=== PATIENT | female | born 1935 | race Caucasian/White ===

== ENCOUNTER 2017-05-24 12:47 | Outpatient (CLI) | payer MEDICARE, OTHER ==
--- OUTSIDE RECORDS SUMMARY | 2017-05-24 12:52 | XMS | Clinical Summary ---
:1935 Author Organization [facility] Address [address] [place] [address] Phone Care Team Providers Name Role Phone , Primary Care Provider Unavailable Allergies Not on File Current Medications Not on file Active Problems Not on file Social History Tobacco Use Types Packs/Day Years Used Date Never Assessed Sex Assigned at Date Recorded Not on file Last Filed Vital Signs Not on file Plan of Treatment Not on file Results Not on filefrom Last 3 Months
--- NOTE | 2017-05-24 15:39 | RAD ---
CHEST 2 VIEWS: HISTORY: Dyspnea. COMPARISON: 10/13/16. FINDINGS: The cardiac silhouette remains partially obscured by an elevated right hemidiaphragm. Pulmonary vas culature is upper limits of normal. Mediastinum is midline with aortic calcification. There is no confluent airspace consolidation, pneumothorax, or pleural fluid evident. IMPRESSION: Chronic-type findings are stable. POS: [facility]
== END 2017-05-24 12:48 | disposition home or self-care (01) ==
LOC: RAD 12:47
PROVIDERS: ATTEND Internal Medicine Pulmonary Disease
DX: R06.00 Dyspnea, unspecified (principal)
CPT/HCPCS: 71020

== ENCOUNTER 2017-12-29 23:13 | Inpatient (IN) | payer MEDICARE, OTHER ==
[2017-12-29] MEDS ORDERED: diphenhydrAMINE 50 MG/ML VIAL ONE (23:41)
[2017-12-29] MEDS ORDERED: methylPREDNISolone Sod Succ/PF 125 MG/2 ML VIAL ONE ×2 (23:41→23:52)
[2017-12-29 23:53] LABS: #Eosinphils 0.2 thou/uL (0.0-0.7); #Lymphocytes 2.3 thou/uL (1.20-3.40); #Monocytes 0.6 thou/uL (0.11-0.59); #Neutrophils 3.4 thou/uL (1.40-6.50); %Basophils 0.2 % (0.0-1.0); %Eosinophils 2.9 % (0.0-10.0); %Lymphocytes 35.3 % (21.0-51.0); %Neutrophils 52.7 % (42.0-75.0); Hemoglobin 12.7 g/dL (12.0-16.0); Mean Corpuscular HGB CONC 34.2 g/dL (32.0-36.0); Mean Corpuscular Volume 93.8 fl (81.0-99.0); Platelet Count 193 thou/uL (130-400); RBC Distribution Width 14.4 % (11.5-14.5); Red Blood Cell (RBC) Count 3.96 mill/uL (4.20-5.40); White Blood Cell (WBC) Count 6.5 thou/uL (4.8-10.8)
--- NOTE | 2017-12-30 00:03 | RAD ---
SINGLE VIEW OF THE CHEST: 12/29/17 INDICATION: Shortness of breath. COMPARISON: Prior exam dated 05/24/17. FINDINGS: Again seen is prominent elevation of the right hemidiaphragm. There is gas density seen underlying th e right hemidiaphragm which may reflect gas filled colon. There was some gas filled colon underlying the right hemidiaphragm on the comparison examination in 2017 but not to the extent seen today. Heart size appears within normal limits. No definite consolidation or pleural effusion is noted. Osseous s tructures are similar appearing. IMPRESSION: 1. Likely stable examination of the chest when compared to prior dated 05/24/17. 2. Stable elevation of the right hemidiaphragm. 3. Gas filled loop of colon suspected along the right hemidiaphragm appears slightly more promin ent than on the comparison study. 4. No focal consolidation is grossly evident. 5. Other chronic findings stable. POS: [facility]
[2017-12-30 00:14] LABS: ALT (SGPT) 23 U/L (8-55); AST (SGOT) 36 U/L (5-34); Albumin 3.8 g/dL (3.4-4.8); Alkaline Phosphatase 93 U/L (40-150); Anion Gap 15 mmol/L (10-20); BUN (Urea Nitrogen) 40 mg/dL (9.8-20.1); Bilirubin, Total 0.3 mg/dL (0.2-1.2); CK (CPK) 222 U/L (29-168); Calc. Creatinine Clearance 0 mL/min (70-130); Calcium 9.2 mg/dL (7.8-10.44); Carbon Dioxide 23 mmol/L (23-31); Chloride 98 mmol/L (98-107); Estimated GFR-MDRD 23; Globulin 3.5 g/dL (2.4-3.5); Glucose 103 mg/dL (83-110); Magnesium 2.3 mg/dL (1.6-2.6); Potassium 4.9 mmol/L (3.5-5.1); Protein, Total 7.3 g/dL (6.0-8.3); Sodium 131 mmol/L (136-145)
[2017-12-30 00:17] LABS: Troponin I 0.018 ng/mL (< 0.028)
[2017-12-30] MEDS ORDERED: Acetaminophen 500 MG TAB ONE (00:21)
[2017-12-30 00:27] LABS: Bilirubin Negative (Negative); Blood, Urine Large (Negative); Clarity CLEAR (Clear); Glucose, Urine (Dipstick) Negative (Negative); Leukocyte Negative (Negative); Nitrite Negative (Negative); Protein, Urine (Dipstick) Trace mg/dL (Neg-Trace); Specific Gravity, Urine 1.018 (1.002-1.036); Urobilinogen 0.2 mg/dL (0.2-1.0)
[2017-12-30] MEDS ORDERED: Lorazepam 2 MG/ML VIAL ONE (00:28)
[2017-12-30 00:29] LABS: Bacteria/HPF None Seen HPF (None Seen); Hyaline Casts/LPF 4-6 HYALINE CAST LPF (0-3 Hyaline); Pathc Cast-AUWi Flag 0.58 (0-2.49); RBC/HPF GREATER THAN 50-TNTC HPF (0-3); Squamous Epithelial 0-3 HPF (0-3); WBC/HPF 0-3 HPF (0-3)
[2017-12-30] MEDS ORDERED: Acetaminophen 325 MG Suppository ONE (00:34)
[2017-12-30 00:35] LABS: CKMB 10.9 ng/mL (0-6.6)
[2017-12-30 00:47] LABS: CO2 Tension 53.8 mmHg (35.0-45.0); pH, Arterial 7.21 (7.35-7.45)
[2017-12-30 00:48] LABS: Actual Bicarbonate (HCO3a) 21.1 mEq/L (22-26); Base Excess (BEa) -6.9 mEq/L (0 (+/-) 2.5); Calcium, Ionized 1.2 mmol/L (1.12-1.30); Hematocrit-ABG 39.3 % (36.0-47.0); Hemoglobin (Hb) 11.6 g/dL (12.0-16.0)
[2017-12-30 00:49] LABS: Analyzer IN Cardio ER; Puncture Site RRA
[2017-12-30] MEDS ORDERED: Succinylcholine Chloride 20 MG/ML 10 ml SYRINGE FS ONE (02:17)
[2017-12-30] MEDS ORDERED: fentaNYL Citrate/PF 2,000 MCG in Sodium Chloride 0.9% 60 ML IV SCH ×2 (02:30→04:02)
[2017-12-30 02:47] LABS: Actual Bicarbonate (HCO3a) 19.1 mEq/L (22-26); Base Excess (BEa) -8.3 mEq/L (0 (+/-) 2.5); CO2 Tension 47.3 mmHg (35.0-45.0); Calcium, Ionized 1.1 mmol/L (1.12-1.30); O2 Tension (PaO2) 109.8 mmHg (80.0-100.0); pH, Arterial 7.22 (7.35-7.45)
[2017-12-30 02:48] LABS: Analyzer IN Cardio ER; Hematocrit-ABG 39.9 % (36.0-47.0); Hemoglobin (Hb) 11.3 g/dL (12.0-16.0); Puncture Site LBA
[2017-12-30 02:52] LABS: ALV-art Gradient 539.075 (0-20)
[2017-12-30] MEDS ORDERED: Norepinephrine 8 MG in Sodium Chloride 0.9% 250 ML 250 ML IVPB SCH (03:15)
[2017-12-30] MEDS ORDERED: EPINEPHrine 1 MG/ML AMP ONE (03:25)
[2017-12-30] MEDS ORDERED: EPINEPHrine 1 MG/10 ML Abboject SYRINGE ONE (03:26)
[2017-12-30] MEDS ORDERED: Milk Of Magnesia 30 ML UDCUP PER TUBE PRN (03:47)
[2017-12-30] MEDS ORDERED: Ventilator Sedation Protocol 1 EACH FS SCH (03:47)
[2017-12-30] MEDS ORDERED: Acetaminophen 650 MG Suppository PR PRN (03:47)
[2017-12-30] MEDS ORDERED: Bisacodyl 10 MG SUPP PR PRN (03:47)
[2017-12-30] MEDS ORDERED: Acetaminophen 325 MG TAB PER TUBE PRN (03:47)
[2017-12-30] MEDS ORDERED: Mag-Al 1200 mg/1200 mg/30 ML UDCUP PER TUBE PRN (03:47)
[2017-12-30] MEDS ORDERED: Loperamide HCl 2 MG CAP PER TUBE PRN (03:47)
[2017-12-30] MEDS ORDERED: Ondansetron HCl/PF 4 MG/2 ML Vial IVP PRN (03:47)
[2017-12-30 03:51] LABS: Troponin I Less than 0.010 ng/mL (< 0.028)
[2017-12-30] MEDS ORDERED: Norepinephrine 8 MG/0.9% NS 250 ML IVPB SCH (04:00)
[2017-12-30] MEDS ORDERED: DISCONTINUE PREVIOUS NARCOTIC PAIN MEDICATIONS AND BENZODIAZEPINES FS SCH (04:02)
[2017-12-30] MEDS ORDERED: Fentanyl BOLUS 250 ML IVPB PRN (04:02)
[2017-12-30] MEDS ORDERED: Propofol BOLUS 1,000 MG/100 ML VIAL IV PRN (04:02)
[2017-12-30] MEDS ORDERED: Morphine 4 MG/ML VIAL SLOW IVP PRN (04:02)
--- NOTE | 2017-12-30 04:29 | HP ---
PRIMARY CARE PHYSICIAN: Dr. Sebastien Quinonez. REASON FOR ADMISSION: Acute respiratory failure. HISTORY OF PRESENT ILLNESS: This is an 82-year-old female who lives at home. She has 24-hour caregiver. Patient was having cough and altered mental status. Patient was incoherent at home. Normally, she gets around with a walker or cane. Per family member, patient was altered significantly today and that is why they brought her to emergency room. Patient has underlying psychiatric problem, but she is able to function by herself. She was having cough with scant amount of sputum and she appeared short of breath. In emergency room, patient was not able to provide any history, though she was able to answer some simple questions, but she was not in position to provide detailed history. She was appeared in respiratory distress. Her chest x-ray was unchanged from previous. Patient was not able to maintain her airway and that is why ER physician decided to intubate her. In emergency room, patient was febrile with temperature 100.2. Her blood pressure was dropping in emergency room and patient was also encephalopathic. She was initially saturating 88% on room air , but with face mask, she was saturating 99%. Family member present at bedside who reported that she was given antibiotic therapy for urinary tract infection on last Sunday, which she finished antibiotic therapy today. Patient is taking trihexyphenidyl medication for several years for underlying psychiatric problem. Patient does not have any UTI symptoms. She does not have any constipation, diarrhea, melena, hematochezia. REVIEW OF SYSTEMS: The following complete review of systems was negative, unless otherwise mentioned in the HPI or below: Constitutional: Weight loss or gain, ability to conduct usual activities. Skin: Rash, itching. Eyes: Double vision, pain. ENT/Mouth: Nose bleeding, neck stiffness, pain, tenderness. Cardiovascular: Palpitations, dyspnea on exertion, orthopnea. Respiratory: Shortness of breath, wheezing, cough, hemoptysis, fever, or night sweats. Gastrointestinal: Poor appetite, abdominal pain, heartburn, nausea, vomiting, constipation, or diarrhea. Genitourinary: Urgency, frequency, dysuria, nocturia. Musculoskeletal: Pain, swelling. Neurologic/Psychiatric: Anxiety, depression. Allergy/Immunologic: Skin rash, bleeding tendency. Though review of system are reviewed with the patient, but not reliable because of her level of cognitive status. PAST MEDICAL HISTORY: COPD/pulmonary fibrosis, dyslipidemia, hypertension. PAST SURGICAL HISTORY: Bilateral hip replacement, right ankle fracture required surgery. PAST PSYCHIATRIC HISTORY: Anxiety, depression. FAMILY HISTORY: As per patient's family member, no strong family history of premature coronary artery disease, stroke, or cancer. ALLERGIES: PENICILLIN. CURRENT HOME MEDICATIONS: Valsartan with hydrochlorothiazide 320/25 one tablet p.o. daily, Zocor 40 mg p.o. at bedtime, Remeron 15 mg p.o. at bedtime, trihexyphenidyl 2 mg p.o. twice daily, gabapentin 600 mg p.o. at bedtime, lamotrigine 150 mg p.o. daily, desvenlafaxine 100 mg p.o. daily. SOCIAL HISTORY: Patient lives at home. She has 24-hour caregiver. No history of tobacco, alcohol, or illicit drug abuse. EMERGENCY ROOM COURSE: Patient is given Solu-Medrol, Benadryl, IV fluid, Levaquin, vancomycin, and DuoNeb therapy. PHYSICAL EXAMINATION: VITAL SIGNS: On arrival blood pressure 129/93, pulse 86, respiratory rate 40, temperature 100.5, saturation 98% on room air, weight 68 kilograms. GENERAL: Patient is currently in respiratory distress. She has tardive dyskinesia. Patient had difficulty handling oral secretions. HEAD: Normocephalic, atraumatic. EYES: Pupils round, reactive to light. Extraocular muscle intact. ENT: Tardive dyskinesia movement of tongue noted. Oropharynx within normal limits. Moist mucous membranes. No pharyngeal erythema, no exudate. NECK: Supple, no JVD, no thyromegaly, no carotid bruit, no meningeal signs of irritation. LUNGS: Diffuse bilateral and expiratory wheezing heard. Air entry reduced at base. CARDIAC: S1, S2 regular, tachycardia noted. No gallop, no rub. ABDOMEN: Soft, bowel sounds present, nontender, nondistended. No organomegaly , no mass, no suprapubic tenderness. BACK: Unremarkable, no CVA tenderness. EXTREMITIES: Upper extremity, passive movement of all joints are normal. Lower extremity: Patient does have right hip bruising, no edema. Good distal pulsation. SKIN: Right hip bruising noted, otherwise no rash. HEMATOLOGICAL: No lymphadenopathy. PSYCHIATRIC: Flat affect. NEUROLOGIC: She is moving all 4 limbs. Grossly looking nonfocal neurological examination. Detailed neurological examination is not possible because of patient's level of cognitive status. SIGNIFICANT LABORATORY DATA: EKG showing normal sinus rhythm. CT brain based on my review, no acute intracranial process. Hip x-ray showing old fracture noted. CBC: WBC of 6.5, hemoglobin 12.7, platelet 193. ABG: pH 7.21, pCO2 of 53.8, bicarbonate 21.1, saturation 96%. BMP: Sodium 131, potassium 4.9, chloride 98, carbon dioxide 23, BUN 40, creatinine 2.07, glucose 103, calcium 9.2, lactic acid 1.6. LFT: Total bilirubin 0.3, AST 36, ALT 23, alkaline phosphatase 93, albumin 3.8, CK of 222, CK-MB 10.9, troponin I 0.018. BNP 201.7. Urinalysis microscopic hematuria. ASSESSMENT AND PLAN: 1. Acute respiratory failure with hypoxia. Patient has required intubation. Patient was tried with nonrebreather, but she was not able to maintain her oral secretions and she was not maintaining her airways and that is why patient required intubation. Pulmonary group will be consulted for vent management. 2. Acute encephalopathy. Patient is altered from her baseline status likely due to metabolic parameters. 3. Acute respiratory acidosis required intubation, we will monitor ABG. 4. Acute kidney failure. Patient's last creatinine in 2013 was 1.51. I am suspecting patient has baseline chronic kidney disease, stage 3 and has gotten worse. We will give her gentle IV fluid and we will repeat kidney function tomorrow. 5. Mild hyponatremia. Patient is getting gentle IV fluid and will repeat BMP tomorrow. 6. Mild rhabdomyolysis and that is why patient has elevated total CK. We will give her gentle IV fluid and will repeat CK tomorrow as well as we will do serial cardiac enzymes to rule out acute coronary syndrome. 7. Elevated BNP. We will do echocardiography to assess ejection fraction and other structural abnormality. 8. Microscopic hematuria. Genital examination done by ER physician and patient was found with periurethral irritation from Suarez catheterization. We will send urine culture and rule out urinary tract infection, though patient was recently treated for urinary tract infection by primary care physician. 9. Hypertension. If blood pressure permits, then we will resume patient's home medication or blood pressure currently blood pressure runs low and that is why we will hold on antihypertensive medication. 10. Dyslipidemia. We will resume Zocor 40 mg p.o. at bedtime. 11. Chronic obstructive pulmonary disease. We will continue DuoNeb therapy q.6 hourly and Pulmicort nebulization twice daily. 12. Anxiety and depression. We will continue patient's gabapentin, lamotrigine , Remeron and , trihexyphenidyl medication as per home dosage after verification of dose. 13. Deep venous thrombosis prophylaxis, heparin 5000 units subcutaneous twice daily. 14. Gastrointestinal prophylaxis, Protonix 40 mg IV daily. 15. Code status: Patient is FULL CODE. Patient's son is surrogate decision maker. Disposition plan based on clinical course. We are expecting patient's stay in hospital more than 2 midnights. Plan of care discussed with the patient in detail. MTDD
[2017-12-30] MEDS: Sodium Chloride 0.9% 1,000 ML IV SCH ×2 (06:58→16:23)
[2017-12-30] MEDS: Budesonide 0.5 MG/2 ML NEB INH SCH ×2 (07:05→19:42)
[2017-12-30] MEDS: Pantoprazole 40 MG VIAL IVP SCH (09:06)
[2017-12-30] MEDS: Heparin 5,000 UNITS/ML VIAL SC SCH ×2 (09:06→21:19)
--- NOTE | 2017-12-30 11:04 | RAD ---
TWO VIEWS RIGHT HIP: HISTORY: Contusion and fall. FINDINGS: Uncomplicated right hip arthroplasty is noted. Extensive heterotopic bone formation and vascular ty cifications are identified. An acute fracture is not appreciated. No perihardware lucency. IMPRESSION: No posttraumatic change. POS: [facility]
--- NOTE | 2017-12-30 11:37 | RAD ---
PORTABLE AP CHEST XRAY: DATE: 12/30/17. HISTORY: Post intubation. COMPARISON: 12/29/17. FINDINGS: Endotracheal tube is now noted in place with the tip overlying the T4-5 level and just above the leve l of the kendall. Nasogastric tube is noted in place with tip overlying the proximal body of the stom ach. The most proximal side hole of the nasogastric tube probably overlies the GE junction. Again n oted is elevation of the right hemidiaphragm. There is volume loss at the right lung base. There ar e increased interstitial and patchy parenchymal opacities seen within the left lung greatest in the l eft mid lung zone and at the medial left lung base which may be related to developing pneumonia and/o r aspiration pneumonitis. Continued followup is recommended. Vascular calcification in the thoracic aorta. Cardiac silhouette is within normal limits. No other interval change. IMPRESSION: 1. Interval placement of endotracheal tube and nasogastric tube. The most proximal sidehole of the nasogastric tube probably overlies the GE junction. Nasogastric tube should be mildly advanced. 2. Persistent elevation of the right hemidiaphragm with atelectasis right lung base. 3. Interstitial and a few scattered patchy parenchymal changes within the left lung which could be r elated to developing infectious process and less likely asymmetric pulmonary edema. Associated aspir ation pneumonitis on the left could not be excluded. Continued followup is recommended. POS: [facility]
--- NOTE | 2017-12-30 11:40 | RAD ---
PORTABLE AP CHEST XRAY: DATE: 12/30/17. HISTORY: Central line placement. COMPARISON: 12/30/17 at 0233 hours. FINDINGS: Endotracheal tube and nasogastric tubes remain in place and unchanged in position. There has been in terval placement of a right internal jugular vein central venous catheter with tip overlying the expe cted location of the right atrium. There is persistent elevation of the right hemidiaphragm with ate lectasis at the right lung base. Interstitial and patchy parenchymal changes are again seen in the l eft mid lung zone and at the lung base which, again, may be related to infectious process/pneumonia. No other interval change. IMPRESSION: 1. Patchy parenchymal changes and interstitial densities in the left mid lung zone and left lung bas e which may be related to pneumonia/infectious process. Followup to resolution is recommended. 2. Elevation of the right hemidiaphragm. 3. Lines and tubes stable in position. No pneumothorax is present. POS: [facility]
[2017-12-30 12:20] LABS: CKMB 8.8 ng/mL (0-6.6); Critical Call CKMBM RESULT DECREASING
[2017-12-30 12:40] LABS: Troponin I 0.168 ng/mL (< 0.028)
--- NOTE | 2017-12-30 13:13 | CT ---
PRELIMINARY REPORT/[facility]/EMERGENTY AFTER-HOURS PROCEDURE CT Head Without Intravenous Contrast EXAM DATE/TIME: Exam ordered 12/30/2017 12:56 AM CLINICAL HISTORY: 82 years old, female; Signs and symptoms; Altered mental status/memory loss; Patient HX: [id number] pres ents to ed C/O difficulty breathing, came in on room air at 88%. Pt has HX of pulmonary fibrosis. Pt does not rely on o2 at home. Lip-smacking is normal. Pt has a uti and has been taking an antibiotic since sunday, last dose was tonight. Pt is febrile at 101. Daughter states that the excessive blinkin g, AMS, and difficulty holding glasses began today. Drug allergy to penicillin. No HX of stroke, or h eart stents. Tempering Kiln Tender denies any diarrhea. TECHNIQUE: Axial computed tomography images of the head/brain without intravenous contrast. COMPARISON: No relevant prior studies available. FINDINGS: Brain: Volume loss and chronic small vessel ischemic change. No hemorrhage. Ventricles: Unremarkable. No ventriculomegaly. Bones/joints: Unremarkable. No acute fracture. Soft tissues: Unremarkable. Sinuses: Unremarkable as visualized. No acute sinusitis. Mastoid air cells: Unremarkable as visualized. No mastoid effusion. IMPRESSION: No acute brain findings. Thank you for allowing us to participate in the care of your patient. Dictated and Authenticated by: Tristen Kaur MD 12/30/2017 1:24 AM Central Time ([place] & [place]) FINAL REPORT EMERGENT AFTER HOURS CT HEAD: DATE: 12/30/17. HISTORY: Altered mental status, memory loss. The patient complains of difficulty breathing. History of pulmo nary fibrosis. IMPRESSION: 1. Lacunar infarction right thalamus of which the exact age is indeterminate. 2. Chronic small-vessel ischemic changes and cerebral volume loss. 3. No acute cortical infarction or hemorrhage is visualized. 4. Findings are in agreement with the preliminary report by [facility]. POS: [facility]
--- NOTE | 2017-12-30 17:28 | CON ---
DATE OF CONSULTATION: 12/30/2017 HISTORY OF PRESENT ILLNESS: Ms. Aleman is an 82-year-old female, who lives at home with 24-hour [facility]. The patient is currently intubated and history is obtained from family members. She normally w alks with a walker. The patient fell yesterday, but has had fairly frequent falls onto her hips. Rosa Elena quinteros has had total hip replacements in the past. She has had bruising in the lateral aspect of the righ t hip for a few days. She had a minor fall yesterday, was brought in because of fever. While she carter s been in the hospital, it has gone up to 104 and reportedly she has a UTI. She had x-rays obtained of the right hip shows a right total hip replacement and I was consulted for the bruising on the late ral aspect of the right hip. PHYSICAL EXAMINATION: The patient has older bruising on the lateral aspect of the right hip and appe ars to be a few days old. There are no skin tears. Skin is in good condition. I am able to move he r right hip without any apparent discomfort, but this is difficult to ascertain since the patient is intubated. There is no crepitance or popping. Her range of motion is smooth. IMAGING: I reviewed the x-rays. The patient has a right total hip replacement in good position and good alignment. There are no acute fractures around the pelvis or proximal femur. Extra bone format ion lateral to the greater trochanter, but there are no acute fractures. The femoral artery was easi ly seen from calcification. IMPRESSION: Contusion of the right hip. PLAN: No specific treatment is needed. The patient may increase her activity with her right hip as medically tolerated by her other condition.
[2017-12-30 18:50] LABS: Troponin I 0.142 ng/mL (< 0.028)
[2017-12-30 18:55] LABS: CKMB 8.4 ng/mL (0-6.6); Critical Call CKMBM RESULT DECREASING
--- NOTE | 2017-12-30 22:18 | CON ---
DATE OF CONSULTATION: 12/30/2017 Ms. Aleman is an 82-year-old female. I met with her son and daughter. They both feel strongly that pernell quinteros likely has dementia. She has been having increasing confusion this week, was worked up for UTI earlier in the week. They tell me that the cultures were negative. There is nothing in the [facility]. She has been followed by Dr. Grover for many years, according to the family, that is for a chronically abnormal chest radiograph. She has not had a history of progressive lung disease. She is also followed by Dr. Quinonez. She did have pulmonary function tests back in 2015, which showed evidence of restriction with low tot al lung capacity and reduced diffusion. She also had a chest CT done in 2014, was ordered by Dr. Grover that showed linear changes in left uppe r lobe and some atelectasis changes in the middle lobe on the right. Her pulmonary function tests going back to at least 2013. She apparently started having trouble handling her secretions and so she was subsequently intubated. I was consulted by the nurses because of her presence to Critical Care Unit this morning. PAST MEDICAL HISTORY: Remarkable for, 1. Lipid disorder. 2. History of hypertension. 3. History of depression. 4. History of surgery for a displaced ankle fracture by Dr. Stephen in 2006. 5. History of left hip arthroplasty. 6. History of restless legs. 7. History of fibromyalgia. 8. History of urinary frequency. 9. History of chronic back pain. 10. History of dysphagia in the past. 11. History of degenerative arthritis. 12. 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 13. History of unilateral oophorectomy. 14. History of PENICILLIN allergy. SOCIAL HISTORY: She has never been a smoker, drinker or drug user. I believe, she is a . FAMILY HISTORY: Negative for lung disease in early age. REVIEW OF SYSTEMS: Not obtainable. PHYSICAL EXAMINATION: GENERAL: She is intubated. She appears reasonably comfortable. Heart rates in the 50s, respiratory rates in the teens, oximetry is 93%, blood pressure 132/66. HEENT: Pupils react. Sclerae are anicteric. Extraocular movements appear full. NECK: Without lymphadenopathy. LUNGS: Remarkable for equal breath sounds. HEART: Regular rhythm. S1 and S2 are normal. ABDOMEN: Soft and nontender. EXTREMITIES: Without clubbing, cyanosis, or edema. LABORATORY DATA: White count yesterday at 6.5, hemoglobin 12.7, platelets 193. Sodium 131, potassiu m 4.9, chloride 98, bicarbonate 23, BUN 40, creatinine 2.07, AST 36, ALT is 23. Troponin was negativ e. BNP 201. Cortisol 17. Her chest radiograph shows an alveolar infiltrate at the left base is patchy. IMPRESSION: 1. Pneumonia with respiratory failure. 2. Extreme deconditioning. 3. Dementia that is clinically by the history of both children has been progressive lately. PLAN: Mechanical ventilation, empiric antimicrobial therapy, serial exams, sedation. I discussed en d-of-life issues and DO NOT RESUSCITATE status. Family wants to talk about this and they seem open t o the idea of at least a DNR, but continue with aggressive care. Dr. Grover will see her in followup i n the morning since he is very familiar with her. Critical care time 30 minutes.
[2017-12-31] MEDS: Sodium Chloride 0.9% 1,000 ML IV SCH ×3 (01:00→23:40)
[2017-12-31 01:53] LABS: Band 17 % (5-11); Hemoglobin 10.8 g/dL (12.0-16.0); Lymphocytes 5 % (21-51); MDiff Complete? YES; Mean Corpuscular HGB CONC 32.9 g/dL (32.0-36.0); Mean Corpuscular Hemoglobin 31.1 pg (27.0-31.0); Mean Corpuscular Volume 94.4 fl (81.0-99.0); Mean Platelet Volume 6.8 fL (7.4-10.4); Monocytes 1 % (0-10); Neutrophil 77 % (42-75); Platelet Count 160 thou/uL (130-400); RBC Distribution Width 14.4 % (11.5-14.5); Red Blood Cell (RBC) Count 3.48 mill/uL (4.20-5.40); White Blood Cell (WBC) Count 5.9 thou/uL (4.8-10.8)
[2017-12-31 01:55] LABS: Troponin I 0.109 ng/mL (< 0.028)
[2017-12-31 01:56] LABS: CKMB 8.3 ng/mL (0-6.6); Critical Call CKMBM RESULT DECREASING
[2017-12-31 01:58] LABS: Anion Gap 13 mmol/L (10-20); BUN (Urea Nitrogen) 25 mg/dL (9.8-20.1); Calc. Creatinine Clearance 43 mL/min (70-130); Calcium 7.6 mg/dL (7.8-10.44); Carbon Dioxide 16 mmol/L (23-31); Chloride 108 mmol/L (98-107); Estimated GFR-MDRD 43; Glucose 142 mg/dL (83-110); Potassium 4.3 mmol/L (3.5-5.1); Sodium 133 mmol/L (136-145)
[2017-12-31] MEDS: Budesonide 0.5 MG/2 ML NEB INH SCH (06:34)
[2017-12-31 07:05] LABS: Actual Bicarbonate (HCO3a) 17.5 mEq/L (22-26); Base Excess (BEa) -7.4 mEq/L (0 (+/-) 2.5); CO2 Tension 33.2 mmHg (35.0-45.0); Hematocrit-ABG 33.1 % (36.0-47.0); Hemoglobin (Hb) 10.2 g/dL (12.0-16.0); O2 Tension (PaO2) 58.1 mmHg (80.0-100.0); pH, Arterial 7.34 (7.35-7.45)
[2017-12-31 07:07] LABS: Calcium, Ionized 1.1 mmol/L (1.12-1.30); Puncture Site RR
--- NOTE | 2017-12-31 08:46 | PRG ---
DATE OF SERVICE: 12/31/2017 This is an 82-year-old female well known to me, who was intubated with respiratory failure. X-ray sh ows now a right-sided pneumonia. Apparently she was seen in Dr. Quinonez's office with a diagnosis of U TI and received what appears to be a week course of Bactrim-DS. She became more confused and agitated with retained secretions over the last 24 hours. In the ER, she had a large volume of secretions, unable to handle, she was intubated. X-ray shows no w a left-sided pneumonia. The patient had a gradual decline in her health. I have been seeing her in the office for an extende d period of time with bilateral elevated diaphragm with severe restrictive pulmonary impairment. It was not pulmonary fibrosis, though she clearly had rather impressive crackles in both lungs. Her previous pulmonary function test in the past 2 years showed there was severe reduction in vital c apacity. She is presently intubated on the vent. PHYSICAL EXAMINATION: VITAL SIGNS: Pulse 93, blood pressure 105/66, sats are 90%, respiration 19. I's & O's have been 233 8 in, 1715 out. CHEST: Chest revealed bilateral rhonchi and crackles. CARDIAC: Sinus tachycardia. ABDOMEN: Soft, without any masses. LABORATORY: White count 5.9, H&H 10 and 32, platelet count 160, pO2 58, pCO2 of 33, pH 7.34, rate o f 16, 40%. Calcium is 1.1, BUN and creatinine are 25 and 1.19. CK-MB is 8.3. Troponin was elevated. Thyroid f unction normal. Sodium 133. IMPRESSION: 1. Left-sided pneumonia. 2. Recent urinary tract infection. 3. Dementia. 4. Respiratory failure, chronic. 5. Advanced age. PLAN: The patient wants to be a DNR. As per the family's wishes I am going to add Maxipime to her a ntibiotics. Continue resuscitative measures. Hopefully, we can try and extubate her in the next 24- 48 hours. Clearly she does not want to be left intubated. This is a one-half hour critical care time. I will follow.
[2017-12-31] MEDS: Pantoprazole 40 MG VIAL IVP SCH (09:20)
[2017-12-31] MEDS: Heparin 5,000 UNITS/ML VIAL SC SCH ×2 (09:20→20:24)
--- NOTE | 2017-12-31 09:50 | RAD ---
PORTABLE AP CHEST: Date: 12/31/17 HISTORY: Daily follow-up evaluation. Patient on ventilator. COMPARISON: 12/30/17. FINDINGS: Endotracheal tube, nasogastric tube, and right internal jugular vein central venous catheters remain in place and unchanged in position. The air space opacities within the left mid lung zone are again s een, and findings again may be related to infectious process/pneumonia. Continued follow-up to resolu tion is recommended. Atelectasis is present at each lung base. There is elevation of the right hemidi aphragm. Cardiac silhouette is within normal limits. There has been no significant interval change fr om prior exam. IMPRESSION: Stable chest. POS: [facility]
[2017-12-31] MEDS: lamoTRIgine 100 MG TAB PO SCH (09:52)
[2017-12-31] MEDS: Venlafaxine HCl XR 150 MG CAP PO SCH (09:57)
[2017-12-31] MEDS: Cefepime 1 GM in Sodium Chloride 0.9% 100 ML IVPB SCH ×2 (09:57→20:24)
[2017-12-31] MEDS: Propofol 1,000 MG/100 ML VIAL IV PRN (10:27)
[2017-12-31] MEDS: Lorazepam 2 MG/ML VIAL SLOW IVP PRN ×2 (11:54→20:11)
--- NOTE | 2017-12-31 13:28 | PDOC.PN ---
- Subjective Encounter Start Date: 12/31/17 Encounter Start Time: 09:20 -: old records requested/rev Patient seen and examined for pneumonia. No overnight events - Objective Resuscitation Status: Resuscitation Status DNR:Do Not Resuscitate MAR Reviewed: Yes Vital Signs & Weight: Vital Signs (12 hours) Temp Pulse Resp BP Pulse Ox 12/31/17 13:10 56 L 114/55 L 12/31/17 12:02 10 L 12/31/17 12:00 98.9 F 12/31/17 10:44 93 132/59 L 12/31/17 10:00 18 12/31/17 08:00 23 H 12/31/17 07:40 99.1 F 89 18 97 12/31/17 06:35 65 87/47 L 12/31/17 05:59 16 12/31/17 04:00 19 12/31/17 03:58 74 12/31/17 02:00 18 Weight Weight 168 lb 6.931 oz Most Recent Monitor Data Heart Rate from ECG 58 NIBP 114/55 NIBP BP-Mean 70 Respiration from ECG 20 SpO2 100 I&O: 12/30/17 12/31/17 01/01/18 06:59 06:59 06:59 Intake Total 2338 500 Output Total 1715 380 Balance 623 120 Result Diagrams: 12/31/17 01:15 12/31/17 01:15 Radiology Reviewed by me: Yes (chest xray, echo) EKG Reviewed by me: Yes (nsr) Phys Exam - Physical Examination Constitutional: NAD intubated HEENT: PERRLA Neck: no JVD, supple Respiratory: no wheezing, no rales, no rhonchi Cardiovascular: RRR, no significant murmur, no rub Gastrointestinal: soft, no distention, positive bowel sounds Musculoskeletal: no edema, pulses present scd+ Lymphatic: no nodes Skin: no rash, normal turgor Dx/Plan (1) Acute kidney failure Status: Acute (2) Acute respiratory acidosis Code(s): E87.2 - ACIDOSIS Status: Acute (3) Acute respiratory failure with hypoxia Code(s): J96.01 - ACUTE RESPIRATORY FAILURE WITH HYPOXIA Status: Acute (4) Demand ischemia Code(s): I24.8 - OTHER FORMS OF ACUTE ISCHEMIC HEART DISEASE Status: Acute (5) Elevated CK Status: Acute (6) Elevated brain natriuretic peptide (BNP) level Code(s): R79.89 - OTHER SPECIFIED ABNORMAL FINDINGS OF BLOOD CHEMISTRY Status : Acute (7) Encephalopathy acute Code(s): G93.40 - ENCEPHALOPATHY, UNSPECIFIED Status: Acute (8) Hyponatremia Code(s): E87.1 - HYPO-OSMOLALITY AND HYPONATREMIA Status: Acute (9) Microscopic hematuria Code(s): R31.29 - OTHER MICROSCOPIC HEMATURIA Status: Acute (10) Pneumonia Code(s): J18.9 - PNEUMONIA, UNSPECIFIED ORGANISM Status: Acute (11) Anxiety and depression Code(s): F41.9 - ANXIETY DISORDER, UNSPECIFIED; F32.9 - MAJOR DEPRESSIVE DISORDER, SINGLE EPISODE, UNSPECIFIED Status: Chronic (12) COPD (chronic obstructive pulmonary disease) Status: Chronic (13) Dyslipidemia Code(s): E78.5 - HYPERLIPIDEMIA, UNSPECIFIED Status: Chronic (14) Elevated diaphragm Code(s): J98.6 - DISORDERS OF DIAPHRAGM Status: Chronic (15) Hypertension Code(s): I10 - ESSENTIAL (PRIMARY) HYPERTENSION Status: Chronic (16) Physical deconditioning Code(s): R53.81 - OTHER MALAISE Status: Chronic - Plan cont current plan of care, plan discussed w/ family, continue antibiotics, respiratory therapy * continue vent as per pulmonary * code status discussed and confirmed DNR with daughter bedside * continue cefepime and levaquin * medication reviewed as below * symptomatic treatment. * renal function improving * discussed with daughter bedside Review of Systems - Review of Systems Other: unable to review as pt is intubated - Medications/Allergies Allergies/Adverse Reactions: Allergies Allergy/AdvReac Type Severity Reaction Status Date / Time Penicillins Allergy Verified 01/16/14 16:31 Medications: Current Medications Acetaminophen (Tylenol) 650 mg NV Q4H PRN PRN Reason: Headache/Fever or Pain Acetaminophen (Tylenol) 650 mg PER TUBE Q4H PRN PRN Reason: Headache/Fever or Pain Al Hydroxide/Mg Hydroxide (Maalox) 30 ml PER TUBE Q6H PRN PRN Reason: Heartburn or Indigestion Albuterol/Ipratropium (Duoneb) 3 ml NEB [id number] [facility] Last Admin: 12/31/17 10:42 Dose: 3 ml Bisacodyl (Dulcolax) 10 mg NV Q24H PRN PRN Reason: Constipation Heparin Sodium (Porcine) (Heparin) 5,000 units SC BID [facility] Last Admin: 12/31/17 09:20 Dose: 5,000 units Sodium Chloride (Normal Saline 0.9%) 1,000 mls @ 100 mls/hr IV .Q10H [facility] Last Admin: 12/31/17 10:27 Dose: 1,000 mls Norepinephrine Bitartrate (Levophed) 250 mls @ 0 mls/hr IVPB INF [facility]; Titrate PRN Reason: Protocol Fentanyl Citrate 2,000 mcg/ (Sodium Chloride) 100 mls @ 0 mls/hr IV INF [facility]; Per Protocol PRN Reason: Protocol Stop: 01/29/18 04:02 Last Admin: 12/31/17 02:06 Dose: 100 mls Fentanyl Citrate (Fentanyl Bolus) 250 mls @ 0 mls/hr IVPB PRN PRN; As Directed PRN Reason: Breakthrough pain/agitation Stop: 01/29/18 04:02 Levofloxacin 500 mg/ Device 100 mls @ 100 mls/hr IVPB Q2DAYS [facility] Cefepime HCl 1 gm/ Sodium (Chloride) 100 mls @ 200 mls/hr IVPB Q12HR [facility] Last Admin: 12/31/17 09:57 Dose: 100 mls Lamotrigine (Lamictal) 150 mg PO DAILY [facility] Last Admin: 12/31/17 09:52 Dose: 150 mg Loperamide HCl (Imodium) 2 mg PER TUBE PRN PRN PRN Reason: Diarrhea/Loose Stools Lorazepam (Ativan) 2 mg SLOW IVP Q1H PRN PRN Reason: Breakthrough agitation Stop: 01/29/18 04:02 Last Admin: 12/31/17 11:54 Dose: 2 mg Magnesium Hydroxide (Milk Of Magnesium) 30 ml PER TUBE DAILYPRN PRN PRN Reason: Constipation Methylprednisolone Sodium Succinate (Solu-Medrol) 20 mg IVP Q8HR [facility] Last Admin: 12/31/17 05:45 Dose: 20 mg Miscellaneous Medication (Ventilator Sedation Protocol) 1 each FS ONE [facility] Stop: 01/29/18 03:48 Morphine Sulfate (Morphine) 2 mg SLOW IVP Q1H PRN PRN Reason: breakthrough pain/agitation Stop: 01/29/18 04:02 Discontinue Previous Narcotic Pain Medications And Benzodiazepines 1 each FS .ONE [facility] Stop: 01/29/18 04:02 Ondansetron HCl (Zofran) 4 mg IVP Q6H PRN PRN Reason: Nausea/Vomiting Pantoprazole Sodium (Protonix) 40 mg IVP DAILY [facility] Last Admin: 12/31/17 09:20 Dose: 40 mg Propofol (Diprivan) 1,000 mg IV INF PRN; Protocol PRN Reason: TO ACHIEVE GOAL RASS Stop: 01/29/18 04:02 Last Admin: 12/31/17 10:27 Dose: 1,000 mg Propofol (Diprivan Bolus) 20 mg IV Q5MIN PRN PRN Reason: BREAKTHROUGH AGITATION Stop: 01/29/18 04:02 Venlafaxine HCl (Effexor Xr) 150 mg PO DAILY [facility] Last Admin: 12/31/17 09:57 Dose: 150 mg
[2018-01-01] MEDS ORDERED: Vancomycin HCl 1 GM in Premix Bag 1 BAG IVPB SCH (02:00)
[2018-01-01 04:46] LABS: Anion Gap 12 mmol/L (10-20); BUN (Urea Nitrogen) 22 mg/dL (9.8-20.1); Calc. Creatinine Clearance 55 mL/min (70-130); Carbon Dioxide 18 mmol/L (23-31); Chloride 111 mmol/L (98-107); Estimated GFR-MDRD 56; Glucose 120 mg/dL (83-110); Potassium 4.5 mmol/L (3.5-5.1); Sodium 136 mmol/L (136-145)
[2018-01-01 04:53] LABS: Band 7 % (5-11); Lymphocytes 7 % (21-51); MDiff Complete? YES; Mean Corpuscular HGB CONC 32.8 g/dL (32.0-36.0); Mean Corpuscular Hemoglobin 31.6 pg (27.0-31.0); Mean Corpuscular Volume 96.3 fl (81.0-99.0); Mean Platelet Volume 7.4 fL (7.4-10.4); Monocytes 1 % (0-10); Neutrophil 85 % (42-75); Platelet Count 154 thou/uL (130-400); RBC Distribution Width 14.8 % (11.5-14.5); Red Blood Cell (RBC) Count 3.17 mill/uL (4.20-5.40); White Blood Cell (WBC) Count 7.5 thou/uL (4.8-10.8)
[2018-01-01] MEDS: Sodium Chloride 0.9% 1,000 ML IV SCH ×2 (06:13→15:49)
[2018-01-01] MEDS: Propofol 1,000 MG/100 ML VIAL IV PRN (06:37)
[2018-01-01 07:07] LABS: ALV-art Gradient 146.275 (0-20); Actual Bicarbonate (HCO3a) 18.5 mEq/L (22-26); Base Excess (BEa) -7.8 mEq/L (0 (+/-) 2.5); CO2 Tension 40.5 mmHg (35.0-45.0); Calcium, Ionized 1.2 mmol/L (1.12-1.30); Hematocrit-ABG 32.6 % (36.0-47.0); Hemoglobin (Hb) 9.9 g/dL (12.0-16.0); O2 Tension (PaO2) 86.3 mmHg (80.0-100.0); Puncture Site RRA; pH, Arterial 7.28 (7.35-7.45)
[2018-01-01] MEDS ORDERED: DC Sedation Protocol FS ONE (08:33)
--- NOTE | 2018-01-01 08:38 | PRG ---
DATE OF SERVICE: 01/01/2018 This morning she is awake, alert, responsive on the vent. PHYSICAL EXAMINATION: VITAL SIGNS: Pulse 108, blood pressure 130/71, sats 98%, respirations 24. X-ray still shows a left-sided infiltrate. I's and O's have been 3563 in, 1040 out. CHEST: Chest reveals decreased breath sounds, no wheezing or crackles. CARDIAC: Normal S1, S2, no gallops. ABDOMEN: Soft. NEURO: Awake and responsive. LABORATORY: White count 7.5, H&H 10 and 30, platelet count 154, pO2 is 86, pCO2 40%. 28. BUN and c reatinine are back to normal. Sodium 136. IMPRESSION: 1. Respiratory failure. 2. Left-sided pneumonia. 3. Baseline severe restrictive pulmonary impairment. 4. Elevated hemidiaphragm. 5. Bipolar schizophrenic halfway. PLAN: We are going to wean and extubate her today as per the family wishes. She is not to be intuba adonis again. In the meantime, we will continue antibiotics, nebulizer treatments, supportive care, steroids. I will follow. One-half hour critical care time.
[2018-01-01] MEDS: Cefepime 1 GM in Sodium Chloride 0.9% 100 ML IVPB SCH ×2 (09:34→20:46)
[2018-01-01] MEDS: Pantoprazole 40 MG VIAL IVP SCH (09:35)
[2018-01-01] MEDS: Enoxaparin Sodium 40 MG/0.4 ML SYRINGE SC SCH (09:37)
[2018-01-01] MEDS: lamoTRIgine 100 MG TAB PO SCH (09:37)
[2018-01-01] MEDS: Venlafaxine HCl XR 150 MG CAP PO SCH (09:37)
--- NOTE | 2018-01-01 09:49 | RAD ---
PORTABLE AP CHEST RADIOGRAPH: Date: 01-01-18 History: Daily follow up evaluation. Patient on ventilator. Comparison: 12-31-17 FINDINGS: Endotracheal tube, nasogastric tube, and right internal jugular vein central venous catheter remain i n place and unchanged. Again noted are increased interstitial and alveolar opacities within the left perihilar region and left midlung zone and left lung base. Minimal patchy densities seen in the infra hilar region on the right. However, this exam was obtained in a shallow depth of inspiration which ac centuates the bronchovascular markings. Cardiac silhouette is within normal limits for portable techn ique. Prominent vascular calcification in the thoracic aorta. There is stable elevation of the right hemidiaphragm. IMPRESSION: Overall stable chest given differences in technique and depth of inspiration. POS: OFF
[2018-01-01] MEDS ORDERED: Morphine 4 MG/ML VIAL SLOW IVP SCH (12:15)
--- NOTE | 2018-01-01 13:04 | PDOC.PN ---
- Subjective Encounter Start Date: 01/01/18 Encounter Start Time: 10:00 Patient seen and examined for pneumonia. pt is extubated today. No overnight events - Objective Resuscitation Status: Resuscitation Status DNR:Do Not Resuscitate MAR Reviewed: Yes Vital Signs & Weight: Vital Signs (12 hours) Temp Pulse Resp BP Pulse Ox 01/01/18 11:03 104 H 20 93 L 01/01/18 09:00 99.1 F 107 H 20 93 L 01/01/18 07:18 103 H 132/71 01/01/18 07:00 99.1 F 01/01/18 06:00 24 H 01/01/18 05:00 98.7 F 01/01/18 04:00 10 L 01/01/18 03:07 81 140/77 01/01/18 02:00 12 Weight Admit Weight 168 lb Weight 176 lb 5.917 oz Most Recent Monitor Data Heart Rate from ECG 108 NIBP 121/65 NIBP BP-Mean 100 Respiration from ECG 21 SpO2 93 I&O: 12/31/17 01/01/18 01/02/18 06:59 06:59 06:59 Intake Total 2338 3563.3 Output Total 1715 1040 95 Balance 623 2523.3 -95 Result Diagrams: 01/01/18 04:00 01/01/18 04:00 Radiology Reviewed by me: Yes (chest xray) EKG Reviewed by me: Yes (nsr) Phys Exam - Physical Examination Constitutional: NAD HEENT: PERRLA, moist MMs, sclera anicteric Neck: no JVD, supple Respiratory: no rales, wheezing present Cardiovascular: RRR, no significant murmur, no rub Gastrointestinal: soft, non-tender, no distention, positive bowel sounds Musculoskeletal: no edema, pulses present Neurological: moves all 4 limbs Lymphatic: no nodes Psychiatric: normal affect Skin: no rash, normal turgor Dx/Plan (1) Acute kidney failure Status: Acute (2) Acute respiratory acidosis Code(s): E87.2 - ACIDOSIS Status: Acute (3) Acute respiratory failure with hypoxia Code(s): J96.01 - ACUTE RESPIRATORY FAILURE WITH HYPOXIA Status: Acute (4) Demand ischemia Code(s): I24.8 - OTHER FORMS OF ACUTE ISCHEMIC HEART DISEASE Status: Acute (5) Elevated CK Status: Acute (6) Elevated brain natriuretic peptide (BNP) level Code(s): R79.89 - OTHER SPECIFIED ABNORMAL FINDINGS OF BLOOD CHEMISTRY Status : Acute (7) Encephalopathy acute Code(s): G93.40 - ENCEPHALOPATHY, UNSPECIFIED Status: Acute (8) Hyponatremia Code(s): E87.1 - HYPO-OSMOLALITY AND HYPONATREMIA Status: Acute (9) Microscopic hematuria Code(s): R31.29 - OTHER MICROSCOPIC HEMATURIA Status: Acute (10) Pneumonia Code(s): J18.9 - PNEUMONIA, UNSPECIFIED ORGANISM Status: Acute (11) Anxiety and depression Code(s): F41.9 - ANXIETY DISORDER, UNSPECIFIED; F32.9 - MAJOR DEPRESSIVE DISORDER, SINGLE EPISODE, UNSPECIFIED Status: Chronic (12) COPD (chronic obstructive pulmonary disease) Status: Chronic (13) Dyslipidemia Code(s): E78.5 - HYPERLIPIDEMIA, UNSPECIFIED Status: Chronic (14) Elevated diaphragm Code(s): J98.6 - DISORDERS OF DIAPHRAGM Status: Chronic (15) Hypertension Code(s): I10 - ESSENTIAL (PRIMARY) HYPERTENSION Status: Chronic (16) Physical deconditioning Code(s): R53.81 - OTHER MALAISE Status: Chronic - Plan cont current plan of care, plan discussed w/ family, continue antibiotics, PT/OT , social economist, respiratory therapy * transfer to medical floor * medication reviewed as below * symptomatic treatment * palliative care consult * continue cefepime and levaquin * may need placement * discussed with family bedside. * selected home medication reconciled Review of Systems - Review of Systems Other: not reliable and unable to obtain from pt due to her level of cognitive status - Medications/Allergies Allergies/Adverse Reactions: Allergies Allergy/AdvReac Type Severity Reaction Status Date / Time Penicillins Allergy Verified 01/16/14 16:31 Medications: Current Medications Acetaminophen (Tylenol) 650 mg MS Q4H PRN PRN Reason: Headache/Fever or Pain Acetaminophen (Tylenol) 650 mg PER TUBE Q4H PRN PRN Reason: Headache/Fever or Pain Al Hydroxide/Mg Hydroxide (Maalox) 30 ml PER TUBE Q6H PRN PRN Reason: Heartburn or Indigestion Albuterol/Ipratropium (Duoneb) 3 ml NEB [id number] [facility] Last Admin: 01/01/18 11:03 Dose: 3 ml Aspirin (Ecotrin) 81 mg PO DAILY [facility] Atorvastatin Calcium (Lipitor) 20 mg PO HS [facility] Bisacodyl (Dulcolax) 10 mg MS Q24H PRN PRN Reason: Constipation Enoxaparin Sodium (Lovenox) 40 mg SC 0900 [facility] Last Admin: 01/01/18 09:37 Dose: 40 mg Gabapentin (Neurontin) 300 mg PO HS [facility] Cefepime HCl 1 gm/ Sodium (Chloride) 100 mls @ 200 mls/hr IVPB Q12HR [facility] Last Admin: 01/01/18 09:34 Dose: 100 mls Sodium Chloride (Normal Saline 0.9%) 1,000 mls @ 70 mls/hr IV .[id number] [facility] Levofloxacin 500 mg/ Device 100 mls @ 100 mls/hr IVPB 2300 [facility] Lamotrigine (Lamictal) 150 mg PO DAILY [facility] Last Admin: 01/01/18 09:37 Dose: 150 mg Loperamide HCl (Imodium) 2 mg PER TUBE PRN PRN PRN Reason: Diarrhea/Loose Stools Magnesium Hydroxide (Milk Of Magnesium) 30 ml PER TUBE DAILYPRN PRN PRN Reason: Constipation Methylprednisolone Sodium Succinate (Solu-Medrol) 20 mg IVP BID [facility] Mirtazapine (Remeron) 15 mg PO HS [facility] Morphine Sulfate (Morphine) 2 mg SLOW IVP Q4H PRN PRN Reason: Pain Ondansetron HCl (Zofran) 4 mg IVP Q6H PRN PRN Reason: Nausea/Vomiting Pantoprazole Sodium (Protonix) 40 mg IVP DAILY [facility] Last Admin: 01/01/18 09:35 Dose: 40 mg Sodium Chloride (Flush - Normal Saline) 10 ml IVF Q12HR [facility] Last Admin: 01/01/18 09:36 Dose: 10 ml Sodium Chloride (Flush - Normal Saline) 10 ml IVF PRN PRN PRN Reason: Saline Flush Venlafaxine HCl (Effexor Xr) 150 mg PO DAILY [facility] Last Admin: 01/01/18 09:37 Dose: 150 mg
[2018-01-01] MEDS: Morphine 4 MG/ML VIAL SLOW IVP PRN (19:12)
[2018-01-01] MEDS: Mirtazapine 15 MG TAB PO SCH (20:44)
[2018-01-01] MEDS: Gabapentin 300 MG CAP PO SCH (20:44)
[2018-01-01] MEDS: Atorvastatin Calcium 20 MG TAB PO SCH (20:45)
[2018-01-02] MEDS: Morphine 4 MG/ML VIAL SLOW IVP PRN ×3 (00:16→15:46)
[2018-01-02] MEDS ORDERED: Lorazepam 2 MG/ML VIAL SLOW IVP PRN (01:08)
[2018-01-02] MEDS ORDERED: Furosemide 20 MG/2 ML VIAL SLOW IVP SCH (01:15)
[2018-01-02] MEDS: Sodium Chloride 0.9% 1,000 ML IV SCH (01:16)
[2018-01-02] MEDS: Pantoprazole 40 MG VIAL IVP SCH (07:47)
[2018-01-02] MEDS: Enoxaparin Sodium 40 MG/0.4 ML SYRINGE SC SCH (07:51)
[2018-01-02] MEDS: Venlafaxine HCl XR 150 MG CAP PO SCH (07:52)
[2018-01-02] MEDS: lamoTRIgine 100 MG TAB PO SCH (07:52)
[2018-01-02] MEDS: Aspirin 81 mg Enteric Coated Tablet PO SCH (07:52)
[2018-01-02] MEDS ORDERED: Ziprasidone 20 MG VIAL IM SCH (08:30)
[2018-01-02] MEDS: Cefepime 1 GM in Sodium Chloride 0.9% 100 ML IVPB SCH ×2 (08:31→21:33)
--- NOTE | 2018-01-02 10:14 | PRG ---
DATE OF SERVICE: 01/02/2018 This morning she remains agitated. PHYSICAL EXAMINATION: VITAL SIGNS: Sats are 96 on a Ventimask, respirations 24, temperature 98, blood pressure 145/82. CHEST: Chest revealed bilateral rhonchi and crackles. CARDIAC: Normal S1, S2, no gallops. ABDOMEN: Soft, no masses. IMPRESSION: 1. Respiratory failure. 2. Pneumonia. 3. Encephalopathy. 4. Baseline dementia. PLAN: Low dose rispirodone_ status. Continue antibiotics, continue neb treatments, supportive care. She is DNR. I will follow. MTDD
[2018-01-02] MEDS ORDERED: Morphine 4 MG/ML VIAL SLOW IVP SCH (12:00)
[2018-01-02] MEDS ORDERED: Ziprasidone 20 MG VIAL IM PRN (12:10)
--- NOTE | 2018-01-02 12:13 | PDOC.PN ---
- Subjective Encounter Start Date: 01/02/18 Encounter Start Time: 08:15 pt is agitated, does not keep oxygen mask on, Patient seen and examined for pneumonia. No overnight events - Objective Resuscitation Status: Resuscitation Status DNR:Do Not Resuscitate MAR Reviewed: Yes Vital Signs & Weight: Vital Signs (12 hours) Temp Pulse Resp BP BP Pulse Ox 01/02/18 08:00 98.2 F 95 16 96 01/02/18 07:09 98.2 F 95 16 145/82 H 96 01/02/18 07:01 79 24 H 95 01/02/18 04:00 97.7 F 94 20 127/75 98 01/02/18 01:55 96 Weight Admit Weight 168 lb Weight 185 lb 5 oz Most Recent Monitor Data Heart Rate from ECG 108 NIBP 121/65 NIBP BP-Mean 100 Respiration from ECG 21 SpO2 93 I&O: 01/01/18 01/02/18 01/03/18 06:59 06:59 06:59 Intake Total 3563.3 Output Total 1040 1445 Balance 2523.3 -1445 Result Diagrams: 01/01/18 04:00 01/01/18 04:00 Phys Exam - Physical Examination Constitutional: NAD HEENT: PERRLA, moist MMs, sclera anicteric Neck: no JVD, supple Respiratory: no wheezing, no rales, no rhonchi Cardiovascular: RRR, no significant murmur, no rub Gastrointestinal: soft, non-tender, no distention, positive bowel sounds Musculoskeletal: no edema, pulses present Neurological: moves all 4 limbs Lymphatic: no nodes Psychiatric: normal affect Skin: no rash, normal turgor Dx/Plan (1) Acute kidney failure Status: Acute (2) Acute respiratory acidosis Code(s): E87.2 - ACIDOSIS Status: Acute (3) Acute respiratory failure with hypoxia Code(s): J96.01 - ACUTE RESPIRATORY FAILURE WITH HYPOXIA Status: Acute (4) Demand ischemia Code(s): I24.8 - OTHER FORMS OF ACUTE ISCHEMIC HEART DISEASE Status: Acute (5) Elevated CK Status: Acute (6) Elevated brain natriuretic peptide (BNP) level Code(s): R79.89 - OTHER SPECIFIED ABNORMAL FINDINGS OF BLOOD CHEMISTRY Status : Acute (7) Encephalopathy acute Code(s): G93.40 - ENCEPHALOPATHY, UNSPECIFIED Status: Acute (8) Hyponatremia Code(s): E87.1 - HYPO-OSMOLALITY AND HYPONATREMIA Status: Acute (9) Microscopic hematuria Code(s): R31.29 - OTHER MICROSCOPIC HEMATURIA Status: Acute (10) Pneumonia Code(s): J18.9 - PNEUMONIA, UNSPECIFIED ORGANISM Status: Acute (11) Anxiety and depression Code(s): F41.9 - ANXIETY DISORDER, UNSPECIFIED; F32.9 - MAJOR DEPRESSIVE DISORDER, SINGLE EPISODE, UNSPECIFIED Status: Chronic (12) COPD (chronic obstructive pulmonary disease) Status: Chronic (13) Dyslipidemia Code(s): E78.5 - HYPERLIPIDEMIA, UNSPECIFIED Status: Chronic (14) Elevated diaphragm Code(s): J98.6 - DISORDERS OF DIAPHRAGM Status: Chronic (15) Hypertension Code(s): I10 - ESSENTIAL (PRIMARY) HYPERTENSION Status: Chronic (16) Physical deconditioning Code(s): R53.81 - OTHER MALAISE Status: Chronic - Plan cont current plan of care, plan discussed w/ family, continue antibiotics, criminal justice social worker, respiratory therapy * will add geodon 10 mg im q 4 hrly prn , seems working for pt * continue cefepime and levaquin * today will try to wean oxygen to nasal cannula * case aide is working on her placement * she is at high risk for readmission * medication reviewed as below * symptomatic treatment * discussed with family bedside. Review of Systems - Review of Systems Other: unable to review with pt as pt is confused and has dementia - Medications/Allergies Allergies/Adverse Reactions: Allergies Allergy/AdvReac Type Severity Reaction Status Date / Time Penicillins Allergy Verified 01/16/14 16:31 Medications: Current Medications Acetaminophen (Tylenol) 650 mg DE Q4H PRN PRN Reason: Headache/Fever or Pain Acetaminophen (Tylenol) 650 mg PER TUBE Q4H PRN PRN Reason: Headache/Fever or Pain Al Hydroxide/Mg Hydroxide (Maalox) 30 ml PER TUBE Q6H PRN PRN Reason: Heartburn or Indigestion Albuterol/Ipratropium (Duoneb) 3 ml NEB [id number] [facility] Last Admin: 01/02/18 10:31 Dose: Not Given Aspirin (Ecotrin) 81 mg PO DAILY [facility] Last Admin: 01/02/18 07:52 Dose: Not Given Atorvastatin Calcium (Lipitor) 20 mg PO HS [facility] Last Admin: 01/01/18 20:45 Dose: Not Given Bisacodyl (Dulcolax) 10 mg [place] Q24H PRN PRN Reason: Constipation Enoxaparin Sodium (Lovenox) 40 mg SC 0900 [facility] Last Admin: 01/02/18 07:51 Dose: 40 mg Gabapentin (Neurontin) 300 mg PO HS [facility] Last Admin: 01/01/18 20:44 Dose: Not Given Cefepime HCl 1 gm/ Sodium (Chloride) 100 mls @ 200 mls/hr IVPB Q12HR [facility] Last Admin: 01/02/18 08:31 Dose: 100 mls Levofloxacin 500 mg/ Device 100 mls @ 100 mls/hr IVPB 2300 [facility] Last Admin: 01/02/18 00:20 Dose: 100 mls Lamotrigine (Lamictal) 150 mg PO DAILY [facility] Last Admin: 01/02/18 07:52 Dose: Not Given Loperamide HCl (Imodium) 2 mg PER TUBE PRN PRN PRN Reason: Diarrhea/Loose Stools Magnesium Hydroxide (Milk Of Magnesium) 30 ml PER TUBE DAILYPRN PRN PRN Reason: Constipation Methylprednisolone Sodium Succinate (Solu-Medrol) 20 mg IVP BID [facility] Last Admin: 01/02/18 07:46 Dose: 20 mg Mirtazapine (Remeron) 15 mg PO HS [facility] Last Admin: 01/01/18 20:44 Dose: Not Given Morphine Sulfate (Morphine) 2 mg SLOW IVP Q6H PRN PRN Reason: Congestion Ondansetron HCl (Zofran) 4 mg IVP Q6H PRN PRN Reason: Nausea/Vomiting Pantoprazole Sodium (Protonix) 40 mg IVP DAILY [facility] Last Admin: 01/02/18 07:47 Dose: 40 mg Risperidone (Risperidone) 0.25 mg PO HS [facility] Sodium Chloride (Flush - Normal Saline) 10 ml IVF Q12HR [facility] Last Admin: 01/02/18 07:52 Dose: 10 ml Sodium Chloride (Flush - Normal Saline) 10 ml IVF PRN PRN PRN Reason: Saline Flush Venlafaxine HCl (Effexor Xr) 150 mg PO DAILY [facility] Last Admin: 01/02/18 07:52 Dose: Not Given Ziprasidone (Geodon) 10 mg IM Q4H PRN PRN Reason: Agitation
[2018-01-02] MEDS: Atorvastatin Calcium 20 MG TAB PO SCH (20:46)
[2018-01-02] MEDS: Gabapentin 300 MG CAP PO SCH (20:46)
[2018-01-02] MEDS ORDERED: risperiDONE 0.25 MG TAB PO SCH (21:00)
[2018-01-02] MEDS: Mirtazapine 15 MG TAB PO SCH (21:06)
[2018-01-03] MEDS: Morphine 4 MG/ML VIAL SLOW IVP PRN (01:35)
[2018-01-03 04:55] LABS: Anion Gap 14 mmol/L (10-20); BUN (Urea Nitrogen) 26 mg/dL (9.8-20.1); Calc. Creatinine Clearance 54 mL/min (70-130); Calcium 9.3 mg/dL (7.8-10.44); Carbon Dioxide 22 mmol/L (23-31); Chloride 107 mmol/L (98-107); Estimated GFR-MDRD 50; Glucose 94 mg/dL (83-110); Potassium 4.3 mmol/L (3.5-5.1); Sodium 139 mmol/L (136-145)
[2018-01-03 05:33] LABS: Band 4 % (5-11); Hemoglobin 11.1 g/dL (12.0-16.0); Lymphocytes 11 % (21-51); MDiff Complete? YES; Mean Corpuscular HGB CONC 32.2 g/dL (32.0-36.0); Mean Corpuscular Hemoglobin 30.2 pg (27.0-31.0); Mean Corpuscular Volume 93.7 fl (81.0-99.0); Mean Platelet Volume 7.6 fL (7.4-10.4); Monocytes 4 % (0-10); Myelocyte 1 % (0-0); Neutrophil 80 % (42-75); PLT Morphology Comment Appears Adequate; Platelet Count 149 thou/uL (130-400); RBC Distribution Width 14.7 % (11.5-14.5); Red Blood Cell (RBC) Count 3.66 mill/uL (4.20-5.40); White Blood Cell (WBC) Count 7.7 thou/uL (4.8-10.8)
[2018-01-03] MEDS: Venlafaxine HCl XR 150 MG CAP PO SCH (09:30)
[2018-01-03] MEDS: Pantoprazole 40 MG GRANULES PACKET PO SCH (09:33)
[2018-01-03] MEDS: lamoTRIgine 100 MG TAB PO SCH (09:33)
[2018-01-03] MEDS: Cefepime 1 GM in Sodium Chloride 0.9% 100 ML IVPB SCH ×2 (09:33→21:31)
[2018-01-03] MEDS: Aspirin 81 mg Enteric Coated Tablet PO SCH (09:34)
[2018-01-03] MEDS: Enoxaparin Sodium 40 MG/0.4 ML SYRINGE SC SCH (09:34)
--- NOTE | 2018-01-03 10:50 | PDOC.PN ---
- Subjective Encounter Start Date: 01/03/18 Encounter Start Time: 07:40 Patient seen and examined for pneumonia. pt did not sleep last night, she is moaning, - Objective Resuscitation Status: Resuscitation Status DNR:Do Not Resuscitate MAR Reviewed: Yes Vital Signs & Weight: Vital Signs (12 hours) Temp Pulse Resp BP Pulse Ox 01/03/18 08:00 97.8 F 97 22 H 94 L 01/03/18 07:00 97.8 F 97 22 H 178/93 H 94 L Weight Admit Weight 168 lb Weight 185 lb 7 oz Most Recent Monitor Data Heart Rate from ECG 108 NIBP 121/65 NIBP BP-Mean 100 Respiration from ECG 21 SpO2 93 I&O: 01/02/18 01/03/18 01/04/18 06:59 06:59 06:59 Output Total 1445 1450 1550 Balance -1445 -1450 -1550 Result Diagrams: 01/03/18 04:34 01/03/18 04:34 Phys Exam - Physical Examination Constitutional: NAD HEENT: PERRLA, sclera anicteric dry MM Neck: no JVD, supple Respiratory: no wheezing, no rhonchi reduced air entry, coarse sound Cardiovascular: RRR, no significant murmur, no rub Gastrointestinal: soft, non-tender, no distention, positive bowel sounds Musculoskeletal: no edema, pulses present Neurological: moves all 4 limbs Lymphatic: no nodes Deviation from normal: confused, disoriented Skin: no rash, normal turgor Dx/Plan (1) Acute kidney failure Status: Resolved (2) Acute respiratory acidosis Code(s): E87.2 - ACIDOSIS Status: Resolved (3) Acute respiratory failure with hypoxia Code(s): J96.01 - ACUTE RESPIRATORY FAILURE WITH HYPOXIA Status: Acute (4) Demand ischemia Code(s): I24.8 - OTHER FORMS OF ACUTE ISCHEMIC HEART DISEASE Status: Acute (5) Elevated CK Status: Acute (6) Elevated brain natriuretic peptide (BNP) level Code(s): R79.89 - OTHER SPECIFIED ABNORMAL FINDINGS OF BLOOD CHEMISTRY Status : Acute (7) Encephalopathy acute Code(s): G93.40 - ENCEPHALOPATHY, UNSPECIFIED Status: Acute (8) Hyponatremia Code(s): E87.1 - HYPO-OSMOLALITY AND HYPONATREMIA Status: Acute (9) Microscopic hematuria Code(s): R31.29 - OTHER MICROSCOPIC HEMATURIA Status: Acute (10) Pneumonia Code(s): J18.9 - PNEUMONIA, UNSPECIFIED ORGANISM Status: Acute Qualifiers: Laterality: left (11) Anxiety and depression Code(s): F41.9 - ANXIETY DISORDER, UNSPECIFIED; F32.9 - MAJOR DEPRESSIVE DISORDER, SINGLE EPISODE, UNSPECIFIED Status: Chronic (12) COPD (chronic obstructive pulmonary disease) Status: Chronic (13) Dyslipidemia Code(s): E78.5 - HYPERLIPIDEMIA, UNSPECIFIED Status: Chronic (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 Review of Systems - Review of Systems Other: unable to review due to her level of cognitive status - Medications/Allergies Allergies/Adverse Reactions: Allergies Allergy/AdvReac Type Severity Reaction Status Date / Time Penicillins Allergy Verified 01/16/14 16:31 Medications: Current Medications Acetaminophen (Tylenol) 650 mg [place] Q4H PRN PRN Reason: Headache/Fever or Pain Acetaminophen (Tylenol) 650 mg PER TUBE Q4H PRN PRN Reason: Headache/Fever or Pain Al Hydroxide/Mg Hydroxide (Maalox) 30 ml PER TUBE Q6H PRN PRN Reason: Heartburn or Indigestion Albuterol/Ipratropium (Duoneb) 3 ml NEB [id number] [facility] Last Admin: 01/03/18 09:56 Dose: Not Given Aspirin (Ecotrin) 81 mg PO DAILY [facility] Last Admin: 01/03/18 09:34 Dose: Not Given Atorvastatin Calcium (Lipitor) 20 mg PO HS [facility] Last Admin: 01/02/18 20:46 Dose: Not Given Bisacodyl (Dulcolax) 10 mg [place] Q24H PRN PRN Reason: Constipation Enoxaparin Sodium (Lovenox) 40 mg SC 0900 [facility] Last Admin: 01/03/18 09:34 Dose: 40 mg Gabapentin (Neurontin) 300 mg PO HS [facility] Last Admin: 01/02/18 20:46 Dose: Not Given Cefepime HCl 1 gm/ Sodium (Chloride) 100 mls @ 200 mls/hr IVPB Q12HR [facility] Last Admin: 01/03/18 09:33 Dose: 100 mls Lamotrigine (Lamictal) 150 mg PO DAILY [facility] Last Admin: 01/03/18 09:33 Dose: 150 mg Levofloxacin (Levaquin) 500 mg PO 0600 [facility] Stop: 01/09/18 06:01 Loperamide HCl (Imodium) 2 mg PER TUBE PRN PRN PRN Reason: Diarrhea/Loose Stools Magnesium Hydroxide (Milk Of Magnesium) 30 ml PER TUBE DAILYPRN PRN PRN Reason: Constipation Methylprednisolone Sodium Succinate (Solu-Medrol) 20 mg IVP DAILY [facility] Mirtazapine (Remeron) 15 mg PO HS [facility] Last Admin: 01/02/18 21:06 Dose: 15 mg Morphine Sulfate (Morphine) 2 mg SLOW IVP Q6H PRN PRN Reason: Congestion Last Admin: 01/03/18 01:35 Dose: 2 mg Ondansetron HCl (Zofran) 4 mg IVP Q6H PRN PRN Reason: Nausea/Vomiting Pantoprazole Sodium (Protonix) 40 mg PO DAILY [facility] Last Admin: 01/03/18 09:33 Dose: Not Given Risperidone (Risperidone) 0.25 mg PO HS [facility] Last Admin: 01/02/18 21:05 Dose: 0.25 mg Sodium Chloride (Flush - Normal Saline) 10 ml IVF Q12HR [facility] Last Admin: 01/03/18 09:33 Dose: 10 ml Sodium Chloride (Flush - Normal Saline) 10 ml IVF PRN PRN PRN Reason: Saline Flush Venlafaxine HCl (Effexor Xr) 150 mg PO DAILY [facility] Last Admin: 01/03/18 09:30 Dose: 150 mg
--- NOTE | 2018-01-03 11:58 | PRG ---
DATE OF SERVICE: 01/03/2018 SUBJECTIVE: This morning appears to be less agitated. OBJECTIVE: VITAL SIGNS: Blood pressure is 178/93, sats 94% on 4 liters, respirations 20, temperature 97. CHEST: Reveal bilateral rhonchi and crackles. CARDIAC: Normal S1 and S2. No gallops. ABDOMEN: Soft. No masses. LABORATORY DATA: White count 10,000, H and H 11 and 33, platelet count is normal with a slight left shift. Electrolytes are normal. IMPRESSION: 1. Pneumonia. 2. Baseline major anxiety along with a bipolar disorder. PLAN: Hopefully, we can restart home medication, low dose of risperidone appears to have helped. Eventually, we would like to get her home with home health and hospice care, and that is what the fam tino wanted. I am going to continue IV antibiotics until she is able to swallow. Thereafter switch over to oral medication. I discussed with her primary care doctor, Dr. Quinonez, [facility]. Long-term prognosis is clearly poor.
[2018-01-03] MEDS ORDERED: Lorazepam 2 MG/ML VIAL SLOW IVP PRN (15:14)
--- NOTE | 2018-01-03 15:32 | PRG ---
DATE OF SERVICE: 01/03/2018 SUBJECTIVE: I met with the patient's son at the bedside with the family and family member was concer gonzález about the patient not able to sleep for several days and patient is not able to get any psychiatr ic medication because she is not able to take by mouth. At this point to reduce her agitation and ag gressiveness as well as her anxiety, I spoke with Dr. Sebastien Quinonez who is her primary care physician and knows her very well for a long period of time and that is why we decided to give her Geodon 10 m g IM at bedtime along with risperidone 0.25 mg p.o. at bedtime if she is able to take by mouth and we will also try Ativan 0.5 mg as needed basis for extreme anxiety. The patient's family members main concern is that she is not able to sleep for several days as well as she is not able to get any psych iatric medication and that is why after discussion with the primary care physician, we decided to add those medications. Unfortunately, the patient has oropharyngeal dysphagia and our speech therapy do es not feel comfortable to give her any kind of diet, but still she is on a diet with the risk, but u nfortunately patient is not taking any medication because of her anxiety and restlessness. We will s ee how she does with the Geodon 10 mg at bedtime, and Ativan 0.5 mg q.6 hourly p.r.n. basis.
[2018-01-03] MEDS: risperiDONE 0.25 MG TAB PO SCH (17:35)
[2018-01-03] MEDS: Atorvastatin Calcium 20 MG TAB PO SCH (21:31)
[2018-01-03] MEDS: Gabapentin 300 MG CAP PO SCH (21:31)
[2018-01-03] MEDS: Mirtazapine 15 MG TAB PO SCH (21:31)
[2018-01-03] MEDS: Ziprasidone 20 MG VIAL IM SCH (21:40)
[2018-01-04] MEDS ORDERED: Non-Formulary Item 1 EACH (Valsartan [Diovan] 320 MG) PO SCH (09:00)
[2018-01-04] MEDS: Cefepime 1 GM in Sodium Chloride 0.9% 100 ML IVPB SCH ×2 (09:50→20:41)
[2018-01-04] MEDS: lamoTRIgine 100 MG TAB PO SCH (09:53)
[2018-01-04] MEDS: Venlafaxine HCl XR 150 MG CAP PO SCH (09:53)
[2018-01-04] MEDS: Valsartan 80 MG TAB PO SCH (09:54)
[2018-01-04] MEDS: Pantoprazole 40 MG GRANULES PACKET PO SCH (09:55)
[2018-01-04] MEDS: Enoxaparin Sodium 40 MG/0.4 ML SYRINGE SC SCH (09:55)
[2018-01-04] MEDS: Aspirin 81 mg Enteric Coated Tablet PO SCH (09:57)
--- NOTE | 2018-01-04 11:04 | PDOC.PN ---
- Subjective Encounter Start Date: 01/04/18 Encounter Start Time: 08:30 Patient seen and examined for pneumonia. No new complaints. No overnight events today pt is resting well - Objective Resuscitation Status: Resuscitation Status DNR:Do Not Resuscitate MAR Reviewed: Yes Vital Signs & Weight: Vital Signs (12 hours) Temp Pulse Resp BP Pulse Ox 01/04/18 08:00 97.4 F L 64 16 96 01/04/18 05:04 97.4 F L 64 16 112/70 100 01/04/18 02:12 93 L 01/03/18 23:56 97.4 F L 98 22 H 154/87 H 98 Weight Admit Weight 168 lb Weight 184 lb 1.728 oz Most Recent Monitor Data Heart Rate from ECG 108 NIBP 121/65 NIBP BP-Mean 100 Respiration from ECG 21 SpO2 93 I&O: 01/03/18 01/04/18 01/05/18 06:59 06:59 06:59 Intake Total 260 Output Total 1450 4900 Balance -1450 -4640 Result Diagrams: 01/03/18 04:34 01/03/18 04:34 Phys Exam - Physical Examination Constitutional: NAD HEENT: PERRLA, moist MMs, sclera anicteric Neck: no JVD, supple Respiratory: no wheezing, no rales, no rhonchi Cardiovascular: RRR, no significant murmur, no rub Gastrointestinal: soft, non-tender, no distention, positive bowel sounds Musculoskeletal: no edema, pulses present Neurological: moves all 4 limbs Lymphatic: no nodes Psychiatric: normal affect Skin: no rash, normal turgor Dx/Plan (1) Acute kidney failure Status: Resolved (2) Acute respiratory acidosis Code(s): E87.2 - ACIDOSIS Status: Resolved (3) Acute respiratory failure with hypoxia Code(s): J96.01 - ACUTE RESPIRATORY FAILURE WITH HYPOXIA Status: Acute (4) Demand ischemia Code(s): I24.8 - OTHER FORMS OF ACUTE ISCHEMIC HEART DISEASE Status: Acute (5) Elevated CK Status: Acute (6) Elevated brain natriuretic peptide (BNP) level Code(s): R79.89 - OTHER SPECIFIED ABNORMAL FINDINGS OF BLOOD CHEMISTRY Status : Acute (7) Encephalopathy acute Code(s): G93.40 - ENCEPHALOPATHY, UNSPECIFIED Status: Acute (8) Hyponatremia Code(s): E87.1 - HYPO-OSMOLALITY AND HYPONATREMIA Status: Acute (9) Microscopic hematuria Code(s): R31.29 - OTHER MICROSCOPIC HEMATURIA Status: Acute (10) Pneumonia Code(s): J18.9 - PNEUMONIA, UNSPECIFIED ORGANISM Status: Acute Qualifiers: Laterality: left (11) Anxiety and depression Code(s): F41.9 - ANXIETY DISORDER, UNSPECIFIED; F32.9 - MAJOR DEPRESSIVE DISORDER, SINGLE EPISODE, UNSPECIFIED Status: Chronic (12) COPD (chronic obstructive pulmonary disease) Status: Chronic (13) Dyslipidemia Code(s): E78.5 - HYPERLIPIDEMIA, UNSPECIFIED Status: Chronic (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 Review of Systems - Review of Systems Other: not reliable with pt due to her level of cognitive status - Medications/Allergies Allergies/Adverse Reactions: Allergies Allergy/AdvReac Type Severity Reaction Status Date / Time Penicillins Allergy Verified 01/16/14 16:31 Medications: Current Medications Acetaminophen (Tylenol) 650 mg AL Q4H PRN PRN Reason: Headache/Fever or Pain Acetaminophen (Tylenol) 650 mg PER TUBE Q4H PRN PRN Reason: Headache/Fever or Pain Al Hydroxide/Mg Hydroxide (Maalox) 30 ml PER TUBE Q6H PRN PRN Reason: Heartburn or Indigestion Albuterol/Ipratropium (Duoneb) 3 ml NEB [id number] [facility] Last Admin: 01/04/18 10:19 Dose: Not Given Aspirin (Ecotrin) 81 mg PO DAILY [facility] Last Admin: 01/04/18 09:57 Dose: Not Given Atorvastatin Calcium (Lipitor) 20 mg PO HS [facility] Last Admin: 01/03/18 21:31 Dose: 20 mg Bisacodyl (Dulcolax) 10 mg AL Q24H PRN PRN Reason: Constipation Enoxaparin Sodium (Lovenox) 40 mg SC 0900 [facility] Last Admin: 01/04/18 09:55 Dose: 40 mg Gabapentin (Neurontin) 300 mg PO HS [facility] Last Admin: 01/03/18 21:31 Dose: 300 mg Cefepime HCl 1 gm/ Sodium (Chloride) 100 mls @ 200 mls/hr IVPB Q12HR [facility] Last Admin: 01/04/18 09:50 Dose: 100 mls Lamotrigine (Lamictal) 150 mg PO DAILY [facility] Last Admin: 01/04/18 09:53 Dose: 150 mg Levofloxacin (Levaquin) 500 mg PO 0600 [facility] Stop: 01/09/18 06:01 Last Admin: 01/04/18 05:06 Dose: 500 mg Loperamide HCl (Imodium) 2 mg PER TUBE PRN PRN PRN Reason: Diarrhea/Loose Stools Lorazepam (Ativan) 0.5 mg SLOW IVP Q6H PRN PRN Reason: Anxiety/Agitation Magnesium Hydroxide (Milk Of Magnesium) 30 ml PER TUBE DAILYPRN PRN PRN Reason: Constipation Methylprednisolone Sodium Succinate (Solu-Medrol) 20 mg IVP DAILY [facility] Last Admin: 01/04/18 09:55 Dose: 20 mg Mirtazapine (Remeron) 15 mg PO HS [facility] Last Admin: 01/03/18 21:31 Dose: 15 mg Morphine Sulfate (Morphine) 2 mg SLOW IVP Q6H PRN PRN Reason: Congestion Last Admin: 01/03/18 01:35 Dose: 2 mg Ondansetron HCl (Zofran) 4 mg IVP Q6H PRN PRN Reason: Nausea/Vomiting Pantoprazole Sodium (Protonix) 40 mg PO DAILY [facility] Last Admin: 01/04/18 09:55 Dose: Not Given Risperidone (Risperidone) 0.25 mg PO 1800 [facility] Last Admin: 01/03/18 17:35 Dose: 0.25 mg Sodium Chloride (Flush - Normal Saline) 10 ml IVF Q12HR [facility] Last Admin: 01/04/18 09:57 Dose: 10 ml Sodium Chloride (Flush - Normal Saline) 10 ml IVF PRN PRN PRN Reason: Saline Flush Valsartan (Diovan) 320 mg PO DAILY [facility] Last Admin: 01/04/18 09:54 Dose: 320 mg Venlafaxine HCl (Effexor Xr) 150 mg PO DAILY [facility] Last Admin: 01/04/18 09:53 Dose: 150 mg Ziprasidone (Geodon) 10 mg IM [facility] Last Admin: 01/03/18 21:40 Dose: 10 mg
--- NOTE | 2018-01-04 11:50 | PRG ---
DATE OF SERVICE: 01/04/2018 SUBJECTIVE: This morning, awake, responsive, no distress. OBJECTIVE: VITAL SIGNS: Sats 90% on 4 liters, temperature is 97, pulse 64, blood pressure 112/70. CHEST: Chest reveals decreased breath sounds, no wheezing. CARDIAC: Normal S1, S2. ABDOMEN: Soft, no masses. ASSESSMENT AND PLAN: Respiratory failure, pneumonia, encephalopathy, dysphagia. She appears to be much improved on present medication. Hopefully, when she is able to swallow, we wi ll discontinue the IV antibiotics, switch her to oral medication. Eventually placement. She is a DN R.
[2018-01-04 15:14] VITALS: BMI 31.6
[2018-01-04] MEDS: risperiDONE 0.25 MG TAB PO SCH (17:51)
[2018-01-04] MEDS: Atorvastatin Calcium 20 MG TAB PO SCH (20:12)
[2018-01-04] MEDS: Mirtazapine 15 MG TAB PO SCH (20:12)
[2018-01-04] MEDS: Gabapentin 300 MG CAP PO SCH (20:12)
[2018-01-04] MEDS: Sterile Water 10 ML VIAL FS PRN (21:45)
[2018-01-04] MEDS: Ziprasidone 20 MG VIAL IM SCH (21:45)
[2018-01-05] MEDS: Valsartan 80 MG TAB PO SCH (08:27)
[2018-01-05] MEDS: Aspirin 81 mg Enteric Coated Tablet PO SCH (08:28)
[2018-01-05] MEDS: Enoxaparin Sodium 40 MG/0.4 ML SYRINGE SC SCH (08:28)
[2018-01-05] MEDS: Pantoprazole 40 MG GRANULES PACKET PO SCH (08:28)
[2018-01-05] MEDS: Venlafaxine HCl XR 150 MG CAP PO SCH (08:53)
[2018-01-05] MEDS: lamoTRIgine 100 MG TAB PO SCH (08:54)
[2018-01-05] MEDS: Cefepime 1 GM in Sodium Chloride 0.9% 100 ML IVPB SCH ×2 (08:55→20:33)
--- NOTE | 2018-01-05 13:34 | PRG ---
DATE OF SERVICE: 01/05/2018 SUBJECTIVE: The patient says she is doing okay, had no acute complaints. PHYSICAL EXAMINATION: VITAL SIGNS: On exam, temperature is 98.0, pulse 81, respirations 16, O2 sat 100%, blood pressure 10 7/64. HEENT: Unremarkable. NECK: No adenopathy or JVD. LUNGS: Coarse rhonchi. CARDIOVASCULAR: S1 and S2, regular. ABDOMEN: Soft. EXTREMITIES: No edema. ASSESSMENT: 1. Respiratory failure. 2. Status post pneumonia. 3. Encephalopathy. 4. Dysphagia. PLAN: She is continuing antibiotic therapy. It would appear that she probably needs some kind of st ep before being discharged such as rehab or penitentiary.
--- NOTE | 2018-01-05 17:00 | PDOC.PN ---
- Subjective Encounter Start Date: 01/05/18 Encounter Start Time: 10:55 Subjective: pt up in bed no complains - Objective Resuscitation Status: Resuscitation Status DNR:Do Not Resuscitate Vital Signs & Weight: Vital Signs (12 hours) Temp Pulse Resp BP Pulse Ox 01/05/18 16:12 98.3 F 91 16 125/74 98 01/05/18 15:00 74 18 96 01/05/18 10:59 98.0 F 81 16 107/64 100 01/05/18 10:43 82 16 100 01/05/18 08:00 97.5 F L 78 18 01/05/18 07:54 78 18 100 01/05/18 07:14 97.9 F 57 L 16 114/66 100 Weight Admit Weight 168 lb Weight 156 lb 3.2 oz Most Recent Monitor Data Heart Rate from ECG 108 NIBP 121/65 NIBP BP-Mean 100 Respiration from ECG 21 SpO2 93 I&O: 01/04/18 01/05/18 01/06/18 06:59 06:59 06:59 Intake Total 260 420 Output Total 4900 550 Balance -4640 -130 Result Diagrams: 01/03/18 04:34 01/03/18 04:34 Phys Exam - Physical Examination HEENT: PERRLA, moist MMs, sclera anicteric, TM's clear, oral pharynx no lesions , 2+ tonsils Neck: no nodes, no JVD, supple, full ROM mild crackles to bases Cardiovascular: RRR, no significant murmur, no rub, gallop, irregular Gastrointestinal: soft, non-tender, no distention, positive bowel sounds Musculoskeletal: no edema, pulses present, edema present Neurological: non-focal, normal sensation, moves all 4 limbs Dx/Plan - Plan (1) Acute kidney failure (2) Acute respiratory acidosis (3) Acute respiratory failure with hypoxia (4) Demand ischemia (5) Elevated CK (6) Elevated brain natriuretic peptide (BNP) level (7) Encephalopathy acute (8) Hyponatremia (9) Microscopic hematuria (10) Pneumonia (11) Anxiety and depression (12) COPD (chronic obstructive pulmonary disease) (13) Dyslipidemia plan: pt was on cefepime since 12/31 will be 6 days today and was on Levaquin. urine cx negative. blood cx one bottle most polo contaminate. will continue levaquin and discontinue cefepime. pt to go to [facility] [place] discontinued today. will change iv steroids to oral. * . Review of Systems - Review of Systems Eyes: negative: Pain, Vision Change, Conjunctivae Inflammation, Eyelid Inflammation, Redness, Other ENT: negative: Ear Pain, Ear Discharge, Nose Pain, Nose Discharge, Nose Congestion, Mouth Pain, Mouth Swelling, Throat Pain, Throat Swelling, Other Respiratory: negative: Cough, Dry, Shortness of Breath, Hemoptysis, SOB with Excertion, Pleuritic Pain, Sputum, Wheezing Cardiovascular: negative: chest pain, palpitations, orthopnea, paroxysmal nocturnal dyspnea, edema, light headedness, other Genitourinary: negative: Dysuria, Frequency, Incontinence, Hematuria, Retention , Other - Medications/Allergies Allergies/Adverse Reactions: Allergies Allergy/AdvReac Type Severity Reaction Status Date / Time Penicillins Allergy Verified 01/16/14 16:31 Medications: Current Medications Acetaminophen (Tylenol) 650 mg [place] Q4H PRN PRN Reason: Headache/Fever or Pain Acetaminophen (Tylenol) 650 mg PER TUBE Q4H PRN PRN Reason: Headache/Fever or Pain Al Hydroxide/Mg Hydroxide (Maalox) 30 ml PER TUBE Q6H PRN PRN Reason: Heartburn or Indigestion Albuterol/Ipratropium (Duoneb) 3 ml NEB [id number] [facility] Last Admin: 01/05/18 18:54 Dose: 3 ml Aspirin (Ecotrin) 81 mg PO DAILY [facility] Last Admin: 01/05/18 08:28 Dose: 81 mg Atorvastatin Calcium (Lipitor) [address] [facility] Last Admin: 01/05/18 20:33 Dose: 20 mg Bisacodyl (Dulcolax) 10 mg [place] Q24H PRN PRN Reason: Constipation Enoxaparin Sodium (Lovenox) 40 mg SC 0900 [facility] Last Admin: 01/05/18 08:28 Dose: 40 mg Gabapentin (Neurontin) [address] [facility] Last Admin: 01/05/18 20:33 Dose: 300 mg Cefepime HCl 1 gm/ Sodium (Chloride) 100 mls @ 200 mls/hr IVPB Q12HR [facility] Last Admin: 01/05/18 20:33 Dose: 100 mls Lamotrigine (Lamictal) 150 mg PO DAILY [facility] Last Admin: 01/05/18 08:54 Dose: 150 mg Levofloxacin (Levaquin) 500 mg PO 0600 [facility] Stop: 01/09/18 06:01 Last Admin: 01/05/18 05:46 Dose: 500 mg Loperamide HCl (Imodium) 2 mg PER TUBE PRN PRN PRN Reason: Diarrhea/Loose Stools Lorazepam (Ativan) 0.5 mg SLOW IVP Q6H PRN PRN Reason: Anxiety/Agitation Magnesium Hydroxide (Milk Of Magnesium) 30 ml PER TUBE DAILYPRN PRN PRN Reason: Constipation Methylprednisolone Sodium Succinate (Solu-Medrol) 20 mg IVP DAILY [facility] Last Admin: 01/05/18 08:54 Dose: 20 mg Mirtazapine (Remeron) 15 mg PO HS [facility] Last Admin: 01/05/18 20:33 Dose: 15 mg Morphine Sulfate (Morphine) 2 mg SLOW IVP Q6H PRN PRN Reason: Congestion Last Admin: 01/03/18 01:35 Dose: 2 mg Ondansetron HCl (Zofran) 4 mg IVP Q6H PRN PRN Reason: Nausea/Vomiting Pantoprazole Sodium (Protonix) 40 mg PO DAILY [facility] Last Admin: 01/05/18 08:28 Dose: 40 mg Risperidone (Risperidone) 0.25 mg PO 1800 [facility] Last Admin: 01/05/18 17:20 Dose: 0.25 mg Sodium Chloride (Flush - Normal Saline) 10 ml IVF Q12HR [facility] Last Admin: 01/05/18 20:33 Dose: 10 ml Sodium Chloride (Flush - Normal Saline) 10 ml IVF PRN PRN PRN Reason: Saline Flush Sterile Water (Water For Injection) 10 ml FS PRN PRN PRN Reason: DILUENT Last Admin: 01/05/18 21:37 Dose: 10 ml Valsartan (Diovan) 320 mg PO DAILY [facility] Last Admin: 01/05/18 08:27 Dose: 320 mg Venlafaxine HCl (Effexor Xr) 150 mg PO DAILY [facility] Last Admin: 01/05/18 08:53 Dose: 150 mg Ziprasidone (Geodon) 10 mg IM HS [facility] Last Admin: 01/05/18 21:37 Dose: 10 mg
[2018-01-05] MEDS: risperiDONE 0.25 MG TAB PO SCH (17:20)
[2018-01-05] MEDS: Mirtazapine 15 MG TAB PO SCH (20:33)
[2018-01-05] MEDS: Atorvastatin Calcium 20 MG TAB PO SCH (20:33)
[2018-01-05] MEDS: Gabapentin 300 MG CAP PO SCH (20:33)
[2018-01-05] MEDS: Ziprasidone 20 MG VIAL IM SCH (21:37)
[2018-01-05] MEDS: Sterile Water 10 ML VIAL FS PRN (21:37)
[2018-01-06] MEDS: lamoTRIgine 100 MG TAB PO SCH (08:37)
[2018-01-06] MEDS: Valsartan 80 MG TAB PO SCH (08:37)
[2018-01-06] MEDS: predniSONE 20 MG TAB PO SCH (08:38)
[2018-01-06] MEDS: Enoxaparin Sodium 40 MG/0.4 ML SYRINGE SC SCH (08:38)
[2018-01-06] MEDS: Aspirin 81 mg Enteric Coated Tablet PO SCH (08:38)
[2018-01-06] MEDS: Pantoprazole 40 MG GRANULES PACKET PO SCH (08:38)
[2018-01-06] MEDS: Venlafaxine HCl XR 150 MG CAP PO SCH (08:38)
--- NOTE | 2018-01-06 11:47 | PRG ---
DATE OF SERVICE: 01/06/2018 SUBJECTIVE: The patient seems to be doing reasonably well. She has no acute complaints. PHYSICAL EXAMINATION: VITAL SIGNS: Temperature 97.7, pulse 80, respirations 16, O2 sat 97% on 3 liters, blood pressure 119 /73. HEENT: Unremarkable. NECK: No JVD. LUNGS: Coarse breath sounds. CARDIAC: S1 and S2 regular. ABDOMEN: Soft. EXTREMITIES: No edema. ASSESSMENT: 1. Status post acute respiratory failure. 2. Encephalopathy. 3. Dysphagia. PLAN: I believe she is going to the [facility] soon. For the time being, she is continuing or al antibiotics and prednisone.
--- NOTE | 2018-01-06 15:15 | PDOC.PN ---
- Subjective Encounter Start Date: 01/06/18 Encounter Start Time: 09:20 Pt seen for followup re: physical deconditioning. Denies chest pain. Reports SOBOE. No fevers. - Objective Resuscitation Status: Resuscitation Status DNR:Do Not Resuscitate MAR Reviewed: Yes Vital Signs & Weight: Vital Signs (12 hours) Temp Pulse Resp BP Pulse Ox 01/06/18 14:16 66 16 100 01/06/18 10:43 70 16 97 01/06/18 08:00 97.7 F 66 20 100 01/06/18 07:27 97.7 F 66 20 119/73 100 01/06/18 07:11 78 14 99 Weight Admit Weight 168 lb Weight 153 lb 6.4 oz Most Recent Monitor Data Heart Rate from ECG 108 NIBP 121/65 NIBP BP-Mean 100 Respiration from ECG 21 SpO2 93 I&O: 01/05/18 01/06/18 01/07/18 06:59 06:59 06:59 Intake Total 420 320 Output Total 550 500 Balance -130 -180 Result Diagrams: 01/03/18 04:34 01/03/18 04:34 Additional Labs: Labs reviewed by me Phys Exam - Physical Examination Constitutional: NAD HEENT: moist MMs Neck: supple Respiratory: clear to auscultation bilateral Diminished air entry tiffanie bases Cardiovascular: RRR Gastrointestinal: soft Neurological: moves all 4 limbs Psychiatric: normal affect Dx/Plan (1) Physical deconditioning Code(s): R53.81 - OTHER MALAISE Status: Acute Comment: awaiting SNU bed (2) Acute respiratory failure with hypoxia Code(s): J96.01 - ACUTE RESPIRATORY FAILURE WITH HYPOXIA Status: Acute Comment: Improved (3) Anxiety and depression Code(s): F41.9 - ANXIETY DISORDER, UNSPECIFIED; F32.9 - MAJOR DEPRESSIVE DISORDER, SINGLE EPISODE, UNSPECIFIED Status: Chronic Comment: stable (4) COPD (chronic obstructive pulmonary disease) Status: Chronic Comment: stable (5) Dyslipidemia Code(s): E78.5 - HYPERLIPIDEMIA, UNSPECIFIED Status: Chronic Comment: stable (6) Hypertension Code(s): I10 - ESSENTIAL (PRIMARY) HYPERTENSION Status: Chronic Comment: controlled - Plan * . Review of Systems - Review of Systems Constitutional: weakness Respiratory: Cough, Shortness of Breath, SOB with Excertion. negative: Pleuritic Pain, Wheezing Cardiovascular: negative: chest pain, palpitations, orthopnea, paroxysmal nocturnal dyspnea, edema, light headedness - Medications/Allergies Allergies/Adverse Reactions: Allergies Allergy/AdvReac Type Severity Reaction Status Date / Time Penicillins Allergy Verified 01/16/14 16:31 Medications: Current Medications Acetaminophen (Tylenol) 650 mg W[place] Q4H PRN PRN Reason: Headache/Fever or Pain Acetaminophen (Tylenol) 650 mg PER TUBE Q4H PRN PRN Reason: Headache/Fever or Pain Al Hydroxide/Mg Hydroxide (Maalox) 30 ml PER TUBE Q6H PRN PRN Reason: Heartburn or Indigestion Albuterol/Ipratropium (Duoneb) 3 ml NEB [id number] [facility] Last Admin: 01/06/18 14:16 Dose: 3 ml Aspirin (Ecotrin) 81 mg PO DAILY [facility] Last Admin: 01/06/18 08:38 Dose: 81 mg Atorvastatin Calcium (Lipitor) 20 mg PO HS [facility] Last Admin: 01/05/18 20:33 Dose: 20 mg Bisacodyl (Dulcolax) 10 mg W[place] Q24H PRN PRN Reason: Constipation Enoxaparin Sodium (Lovenox) 40 mg SC 0900 [facility] Last Admin: 01/06/18 08:38 Dose: 40 mg Gabapentin (Neurontin) 300 mg PO HS [facility] Last Admin: 01/05/18 20:33 Dose: 300 mg Lamotrigine (Lamictal) 150 mg PO DAILY [facility] Last Admin: 01/06/18 08:37 Dose: 150 mg Levofloxacin (Levaquin) 500 mg PO 0600 [facility] Stop: 01/09/18 06:01 Last Admin: 01/06/18 05:47 Dose: 500 mg Loperamide HCl (Imodium) 2 mg PER TUBE PRN PRN PRN Reason: Diarrhea/Loose Stools Lorazepam (Ativan) 0.5 mg SLOW IVP Q6H PRN PRN Reason: Anxiety/Agitation Magnesium Hydroxide (Milk Of Magnesium) 30 ml PER TUBE DAILYPRN PRN PRN Reason: Constipation Mirtazapine (Remeron) 15 mg PO HS [facility] Last Admin: 01/05/18 20:33 Dose: 15 mg Morphine Sulfate (Morphine) 2 mg SLOW IVP Q6H PRN PRN Reason: Congestion Last Admin: 05/17/18 01:35 Dose: 2 mg Ondansetron HCl (Zofran) 4 mg IVP Q6H PRN PRN Reason: Nausea/Vomiting Pantoprazole Sodium (Protonix) 40 mg PO DAILY [facility] Last Admin: 01/06/18 08:38 Dose: 40 mg Prednisone (Prednisone) 20 mg PO QAM-WM [facility] Last Admin: 01/06/18 08:38 Dose: 20 mg Risperidone (Risperidone) 0.25 mg PO 1800 [facility] Last Admin: 01/05/18 17:20 Dose: 0.25 mg Sodium Chloride (Flush - Normal Saline) 10 ml IVF Q12HR [facility] Last Admin: 01/06/18 08:38 Dose: 10 ml Sodium Chloride (Flush - Normal Saline) 10 ml IVF PRN PRN PRN Reason: Saline Flush Sterile Water (Water For Injection) 10 ml FS PRN PRN PRN Reason: DILUENT Last Admin: 01/05/18 21:37 Dose: 10 ml Valsartan (Diovan) 320 mg PO DAILY [facility] Last Admin: 01/06/18 08:37 Dose: 320 mg Venlafaxine HCl (Effexor Xr) 150 mg PO DAILY [facility] Last Admin: 01/06/18 08:38 Dose: 150 mg Ziprasidone (Geodon) 10 mg IM HS [facility] Last Admin: 01/05/18 21:37 Dose: 10 mg
[2018-01-06] MEDS: risperiDONE 0.25 MG TAB PO SCH (17:14)
[2018-01-06] MEDS: Gabapentin 300 MG CAP PO SCH (21:02)
[2018-01-06] MEDS: Atorvastatin Calcium 20 MG TAB PO SCH (21:02)
[2018-01-06] MEDS: Sterile Water 10 ML VIAL FS PRN (21:02)
[2018-01-06] MEDS: Mirtazapine 15 MG TAB PO SCH (21:02)
[2018-01-06] MEDS: Ziprasidone 20 MG VIAL IM SCH (21:02)
[2018-01-07] MEDS ORDERED: predniSONE 20 MG TAB PO SCH ×2 (08:30→15:00)
[2018-01-07] MEDS: lamoTRIgine 100 MG TAB PO SCH (09:01)
[2018-01-07] MEDS: Venlafaxine HCl XR 150 MG CAP PO SCH (09:01)
[2018-01-07] MEDS: Pantoprazole 40 MG GRANULES PACKET PO SCH (09:01)
[2018-01-07] MEDS: Aspirin 81 mg Enteric Coated Tablet PO SCH (09:01)
[2018-01-07] MEDS: Enoxaparin Sodium 40 MG/0.4 ML SYRINGE SC SCH (09:02)
[2018-01-07] MEDS: Valsartan 80 MG TAB PO SCH (09:02)
--- NOTE | 2018-01-07 09:02 | PRG ---
DATE OF SERVICE: 01/07/2018 She is much improved. She appears to be at her baseline now. PHYSICAL EXAMINATION: VITAL SIGNS: Sats are 96 on 3 liters, respiration 20, temperature 97, blood pressure 130/76. She den ied any pain. She is eating on her own. CHEST: Decreased breath sounds, without any wheezing. CARDIAC: Normal S1, S2, no gallops. ABDOMEN: Soft, no masses. IMPRESSION: 1. Respiratory failure. 2. Pneumonia on O2. 3. Metabolic encephalopathy. 4. Bipolar disorder. PLAN: Some of her medications are being adjusted. Decrease steroids. Continue neb treatments, anti biotics, PT, eventually placement.
[2018-01-07] MEDS: predniSONE 20 MG TAB PO SCH (09:09)
--- NOTE | 2018-01-07 15:37 | DIS ---
DATE OF ADMISSION: 12/30/2017 DATE OF DISCHARGE: 01/07/2018 PRIMARY CARE PROVIDER: Sebastien Quinonez M.D. DISCHARGE DIAGNOSES: 1. Acute hypoxic respiratory failure. 2. Acute renal failure. 3. Acute encephalopathy. 4. Rhabdomyolysis. 5. Physical deconditioning. CONDITION OF PATIENT ON THE DAY OF DISCHARGE: Stable. I assess Ms. Aleman on the day of discharge. S kasey denies any chest pain or shortness of breath. Vital signs are stable. S1 and S2 are heard, regul ar. Lungs are clear to auscultation bilaterally. CONSULTATIONS DURING THIS HOSPITALIZATION: 1. Pulmonology, Dr. Broussard. 2. Orthopedics, Dr. Anthony. HOSPITAL COURSE: Ms. Aleman is a pleasant 82-year-old lady, who was admitted to [facility] on 12/30/2017 for acute hypoxic respiratory failure. She also had altered mental status. She was intubated for airway protection. In the emergency room, the patient was febrile. Chest x- ray done on the day of admission was consistent with pneumonia. Please refer to history and physical note by Dr. Bales dated 12/30/2017 for further information. She was admitted to the Critical Care Unit. She was seen by Pulmonology Service. She was treated wi th intravenous antibiotics. She was extubated on 01/01/2018. She continued to improve gradually. S he became deconditioned and is being discharged to [facility] for further management. She was seen by Orthopedic Service on the day of admission for a contusion of the right hip. No spec [facility] treatment was needed. A 2D echocardiogram done on 12/30/2017 showed normal left ventricular size, with left ventricular eje ction fraction estimated at 60% to 65%. Aortic valve was sclerotic, but opened adequately. She had mildly elevated pulmonary artery pressure. DISCHARGE MEDICATIONS: Acetylcysteine 600 mg 2 times a day, aspirin 81 mg daily, Symbicort 160/4.5 t wo puffs 2 times a day, ciclesonide one inhalation to each nares at bedtime, Pristiq 100 mg daily, ga bapentin 300 mg at bedtime, lamotrigine 150 mg daily, levofloxacin 500 mg daily for 5 days, mirtazapi ne 7.5 to 15 mg at bedtime as needed, prednisolone eyedrops one drop to each eye daily, prednisone 10 mg daily for 5 more days, Zocor 40 mg at bedtime, trihexyphenidyl 2 mg as needed, valsartan 320 mg d aily, and Ostera tablet one tablet daily. Many thanks for allowing me to participate in your patient's care. Please feel free to contact me wi th any questions or concerns. Please note that patient also had acute renal failure at the time of admission, which resolved by the time of discharge. She also had mild elevation of troponin during this hospitalization, in the inde terminate range. DISCHARGE DESTINATION: Home. TOTAL AMOUNT OF TIME SPENT COORDINATING THIS DISCHARGE: 33 minutes.
[2018-01-07 16:52] VITALS: BP 119/69; TEMP 97.8
[2018-01-08] MEDS ORDERED: predniSONE 20 MG TAB PO SCH (08:00)
== END 2018-01-07 16:52 | disposition home or self-care (01) | DRG 189 ==
LOC: ERS 23:13 → ERHOLD 12-30 01:43 → CCU 12-30 06:41 → T4-B 01-01 15:36
PROVIDERS: ADMIT Internal Medicine; ATTEND Internal Medicine
DX: J96.01 Acute respiratory failure with hypoxia (principal); G93.40 Encephalopathy, unspecified; J18.9 Pneumonia, unspecified organism; N17.9 Acute kidney failure, unspecified; M62.82 Rhabdomyolysis; E87.1 Hypo-osmolality and hyponatremia; E87.2 Acidosis; I24.8 Other forms of acute ischemic heart disease; R53.81 Other malaise; Z79.82 Long term (current) use of aspirin; Z99.81 Dependence on supplemental oxygen; F31.9 Bipolar disorder, unspecified; F41.9 Anxiety disorder, unspecified; R13.10 Dysphagia, unspecified; J44.9 Chronic obstructive pulmonary disease, unspecified; E78.5 Hyperlipidemia, unspecified; R31.29 Other microscopic hematuria; R74.8 Abnormal levels of other serum enzymes; F03.90 Unspecified dementia, unspecified severity, without behavioral disturbance, psychotic disturbance, mood disturbance, and anxiety; M19.90 Unspecified osteoarthritis, unspecified site; S70.01XA Contusion of right hip, initial encounter; Z96.641 Presence of right artificial hip joint
CPT/HCPCS: 31500; 36415; 36556; 51702; 70450; 71045; 80048; 80053; 81003; 81015; 82533; 82553; 82805; 83605; 83735; 83880; 84443; 84484; 85007; 85025; 85027; 87040; 87086; 87149; 93005; 93306; 94002; 94003; 94640; 94760; 96361; 96365; 96366; 96367; 96368; 96375; A4216; A4353; C9113; G8981-GP-CM; G8982-GP-CK; G8987-GO-CM; G8988-GO-CJ; G8996-GN-CL; G8997-GN-CI; J0171; J0692; J1200; J1644; J1650; J1940; J1956; J2060; J2270; J2704; J2920; J2930; J3010; J3370; J3486; J7050; J7506; J7620; J7626; P9045

== ENCOUNTER 2018-05-13 10:01 | Inpatient (IN) | payer MEDICARE, OTHER ==
[2018-05-13 10:36] LABS: Bilirubin Moderate (Negative); Blood, Urine Negative (Negative); Clarity CLOUDY (Clear); Glucose, Urine (Dipstick) Negative (Negative); Leukocyte Negative (Negative); Nitrite Negative (Negative); Protein, Urine (Dipstick) 30 mg/dL (Neg-Trace); Specific Gravity, Urine 1.023 (1.002-1.036); Urobilinogen 0.2 mg/dL (0.2-1.0)
[2018-05-13 10:39] LABS: Bacteria/HPF None Seen HPF (None Seen); Hyaline Casts/LPF 4-6 HYALINE CAST LPF (0-3 Hyaline); Pathc Cast-AUWi Flag 1.16 (0-2.49); RBC/HPF 0-3 HPF (0-3); Squamous Epithelial 0-3 HPF (0-3); WBC/HPF 0-3 HPF (0-3)
[2018-05-13 11:19] LABS: #Eosinphils 0.4 thou/uL (0.0-0.7); #Lymphocytes 1.6 thou/uL (1.20-3.40); #Monocytes 0.6 thou/uL (0.11-0.59); #Neutrophils 3.4 thou/uL (1.40-6.50); %Basophils 0.6 % (0.0-1.0); %Lymphocytes 26.2 % (21.0-51.0); %Neutrophils 57.3 % (42.0-75.0); Hemoglobin 11.5 g/dL (12.0-16.0); Mean Corpuscular HGB CONC 30.9 g/dL (32.0-36.0); Mean Corpuscular Hemoglobin 29.3 pg (27.0-31.0); Mean Platelet Volume 7.9 fL (7.4-10.4); Platelet Count 218 thou/uL (130-400); RBC Distribution Width 14.4 % (11.5-14.5); Red Blood Cell (RBC) Count 3.92 mill/uL (4.20-5.40)
[2018-05-13 11:43] LABS: ALT (SGPT) 12 U/L (8-55); AST (SGOT) 18 U/L (5-34); Albumin 3.3 g/dL (3.4-4.8); Alkaline Phosphatase 67 U/L (40-150); Anion Gap 15 mmol/L (10-20); BUN (Urea Nitrogen) 52 mg/dL (9.8-20.1); Bilirubin, Total 0.2 mg/dL (0.2-1.2); CK (CPK) 35 U/L (29-168); CKMB 4.5 ng/mL (0-6.6); Calc. Creatinine Clearance 0 mL/min (70-130); Calcium 8.9 mg/dL (7.8-10.44); Carbon Dioxide 20 mmol/L (23-31); Chloride 107 mmol/L (98-107); Estimated GFR-MDRD 13; Globulin 2.6 g/dL (2.4-3.5); Glucose 89 mg/dL (83-110); Potassium 4.7 mmol/L (3.5-5.1); Protein, Total 5.9 g/dL (6.0-8.3); Sodium 137 mmol/L (136-145); Troponin I Less than 0.010 ng/mL (< 0.028)
--- NOTE | 2018-05-13 11:52 | RAD ---
PORTABLE CHEST ONE VIEW: Date: 05-13-18 Time: 11:36 a.m. History: Altered mental status. UTI. FINDINGS/IMPRESSION: Comparison is made with exam of 03-30-18. There is elevation of the right hemidiaphragm. The heart size is prominent. There is subsegmental ate lectasis in the right lung base. No pneumothoraces or cathi pulmonary edema are identified. There are degenerative changes of the spine. POS: [facility]
[2018-05-13] MEDS ORDERED: Guaifenesin DM 100-10/5 ML UDCUP PO PRN (15:06)
[2018-05-13] MEDS ORDERED: Acetaminophen 325 MG TAB PO PRN (15:06)
[2018-05-13 15:53] VITALS: BMI 24.7
[2018-05-13] MEDS ORDERED: Meropenem 0.5 GM in Sodium Chloride 0.9% 100 ML IVPB SCH (16:00)
[2018-05-13] MEDS: Sodium Chloride 0.9% 1,000 ML IV SCH (16:07)
[2018-05-13] MEDS ORDERED: Prevnar 13-Val Conj/PF 0.5 ML SYRINGE IM ONE (16:30)
--- NOTE | 2018-05-13 18:28 | CT ---
ABDOMEN CT WITHOUT CONTRAST: PELVIS CT WITHOUT CONTRAST: HISTORY: Evaluate for obstructive uropathy. TECHNIQUE: An abdomen and pelvis CT is performed without IV contrast. Coronal reformatted images are submitted for interpretation. FINDINGS: ABDOMEN: Right lower lobe consolidation, likely due to atelectasis, given elevation of right hemidia phragm. Chronic change of the left lung base. Heart size is within normal limits. Atherosclerosis of the visualized aorta. No significant pericardial fluid. The gallbladder is unremarkable. Limited evaluation of the solid organs due to lack of IV contrast and due to motion. Grossly, no tod id organ abnormality. No gastrohepatic, retrocrural, or periportal lymphadenopathy. No mesenteric mass, lymphadenopathy, free air, or free fluid. Limited evaluation of the alimentary canal by lack of oral contrast. No evidence of bowel obstructio n. The ileocecal junction is normal. An appendix is not appreciated. No inflammation at the cecal apex. Scattered fecal material in a nondistended, nondilated colon. Bilaterally, no hydronephrosis, nephrolithiasis, or perinephric fat stranding. The bilateral ureters have a normal caliber. No hydroureter, periureteral fat stranding, or ureterolithiasis. Of note, t he distal ureters cannot be assessed due to beam attenuation artifact from bilateral hip prostheses. PELVIS: Limited evaluation due to beam attenuation artifact. Grossly, no abnormality. The visualiz ed adnexal structures are unremarkable. No lytic or blastic lesions in the osseous structures. IMPRESSION: No evidence of nephrolithiasis or obstructive uropathy. POS: [facility]
[2018-05-13] MEDS ORDERED: Arformoterol 15 MCG/2 ML NEB NEB SCH (21:00)
[2018-05-13] MEDS: guaiFENesin ER 600 MG TAB PO SCH (21:22)
[2018-05-13] MEDS: Docusate 100 MG CAP PO SCH (21:22)
[2018-05-13] MEDS: Simvastatin 40 MG TAB PO SCH (21:23)
[2018-05-13] MEDS: lamoTRIgine 100 MG TAB PO SCH (21:23)
[2018-05-13] MEDS: Famotidine 20 MG TAB PO SCH (21:23)
[2018-05-13] MEDS: Mometasone/Formoterol 120 PUFF INHALER INH SCH (21:49)
--- NOTE | 2018-05-13 21:53 | HP ---
REASON FOR ADMISSION: Acute kidney injury, moderate to severe dehydration, possible sepsis, bradycar jo. HISTORY OF PRESENT ILLNESS: Please note majority of this history is obtained by talking to patient's daughter and her caregiver at bedside as patient has fairly advanced dementia and does not recall wh at happened to her. She has been treated for urinary tract infection from Sunday by Dr. Quinonez. She is on Bactrim. Since then, the patient has been progressively getting weaker and has not been able t o walk or converse much. She is also becoming very lethargic. She also straining a lot to pass urin e and has been wanting to do multiple times with increased frequency now. Had temperature of off and on with max temperatures going up to 103.8 degrees per daughter. She vomited once on Sunday. Has not had any diarrhea or abdominal pain. She normally walks with a walker inside the house and outsi de. PAST MEDICAL AND SURGICAL HISTORY: History of pulmonary fibrosis, dyslipidemia, hypertension, recent history of respiratory failure requiring intubation, bilateral hip replacement, right ankle fracture with surgery, depression, anxiety, dementia. CURRENT MEDICATIONS: Patient is on valsartan with hydrochlorothiazide 320/25 mg p.o. daily, simvasta tin 40 mg p.o. daily, mirtazapine 15 mg p.o. at bedtime, trihexyphenidyl 2 mg p.o. twice daily, gabap entin 600 mg p.o. at bedtime, Lamotrigine 150 mg p.o. at bedtime, desvenlafaxine extended release 100 mg daily. ALLERGIES: PENICILLIN. PERSONAL HISTORY: Does not abuse alcohol or drugs. No history of smoking. Has a 24/7 caregiver at home. FAMILY HISTORY: Mother of cancer which is unknown. Father was alcoholic and of complicati ons from the same. CODE STATUS: DNR. This was confirmed with the patient's daughter who is here at bedside. The patie nt also carries out of hospital DNR, which is signed on 01/01/2018. REVIEW OF SYSTEMS: Cannot be obtained as patient is not fully oriented. PHYSICAL EXAMINATION: GENERAL: Patient is an 83-year-old female who is currently not in any acute distress. VITAL SIGNS: Blood pressure on arrival was 74/36, has gone up to 110/60, pulse is around 45-50 beats per minute, respiratory rate 18 per minute, temperature 98.2 degrees Fahrenheit, saturating 99% on 2 liters nasal cannula. NECK: Supple, no elevated JVD. HEENT: Extraocular muscles intact. Pupils reacting to light. Oral cavity mucous membranes are dry. No exudates or congestion. CARDIOVASCULAR: S1, S2 heard. Regular rhythm, bradycardic. RESPIRATORY: Air entry is decreased on the right infrascapular area. No rales or wheezes. ABDOMEN: Soft, bowel sounds heard. No tenderness, rigidity or guarding. EXTREMITIES: No peripheral edema or calf tenderness. VASCULAR SYSTEM: Peripheral pulses 1+ bilateral, no ischemic ulcerations or gangrene. CENTRAL NERVOUS SYSTEM: Patient has chronic left-sided weakness with strength of around 3/5 in both left upper and lower extremities. Right upper and lower extremities strength is 5/5 when compared to left. No other gross focal abnormalities were noted. Gait was not tested. PSYCHIATRIC: No obvious hallucinations or delusions. LABORATORY AND X-RAY FINDINGS: Chest x-ray done shows chronic elevation of right hemidiaphragm. The re is no infiltrates seen. Urinalysis shows trace ketones, but no signs of infection as such. BUN 5 2, creatinine 3.3, serum bicarbonate 20. Albumin is 3.3. Liver enzymes are within normal limits. C ardiac enzymes x1 are negative. White count of 6, H and H 11 and 37, platelet count 218 with 57% jose trophils, MCV is 95. EKG done shows normal sinus rhythm at 54 beats per minute. CLINICAL IMPRESSION AND PLAN: The patient will be admitted to medical floor for sepsis, bradycardia, acute kidney injury, possible recurrent UTI. The patient has been treated with Bactrim from last 1 week or so now. We will place her on meropenem for now until cultures are back. She has received 2 liters of normal saline in the ER and will continue her on 80 mL per hour. Patient has bradycardia a nd I have explained this to the family at bedside. They do not want any aggressive treatment towards the same. We will continue her aspirin, Zocor, lamotrigine, Pepcid, Colace, Symbicort inhaler, DuoN ebs q.6 hourly for now. We will obtain a CT stone protocol to see for any obstructive uropathy.
[2018-05-14] MEDS: Meropenem 500 MG in Sodium Chloride 0.9% 100 ML IVPB SCH ×3 (02:22→16:08)
[2018-05-14 05:03] LABS: #Eosinphils 0.4 thou/uL (0.0-0.7); #Lymphocytes 1.9 thou/uL (1.20-3.40); #Monocytes 0.7 thou/uL (0.11-0.59); #Neutrophils 3.2 thou/uL (1.40-6.50); %Basophils 0.6 % (0.0-1.0); %Eosinophils 6.3 % (0.0-10.0); %Lymphocytes 30.2 % (21.0-51.0); %Monocytes 10.9 % (0.0-10.0); %Neutrophils 52.1 % (42.0-75.0); Hemoglobin 10.2 g/dL (12.0-16.0); Mean Corpuscular HGB CONC 31.2 g/dL (32.0-36.0); Mean Corpuscular Hemoglobin 29.6 pg (27.0-31.0); Mean Corpuscular Volume 94.7 fL (78.0-98.0); Mean Platelet Volume 7.8 fL (7.4-10.4); Platelet Count 192 thou/uL (130-400); RBC Distribution Width 14.2 % (11.5-14.5); Red Blood Cell (RBC) Count 3.47 mill/uL (4.20-5.40); White Blood Cell (WBC) Count 6.2 thou/uL (4.8-10.8)
[2018-05-14 05:14] LABS: Anion Gap 14 mmol/L (10-20); BUN (Urea Nitrogen) 48 mg/dL (9.8-20.1); Calc. Creatinine Clearance 16 mL/min (70-130); Calcium 8.3 mg/dL (7.8-10.44); Carbon Dioxide 20 mmol/L (23-31); Chloride 111 mmol/L (98-107); Estimated GFR-MDRD 17; Glucose 89 mg/dL (83-110); Potassium 4.6 mmol/L (3.5-5.1); Sodium 140 mmol/L (136-145)
[2018-05-14] MEDS: Arformoterol 15 MCG/2 ML NEB NEB SCH ×2 (06:27→19:12)
[2018-05-14] MEDS: Mometasone/Formoterol 120 PUFF INHALER INH SCH ×2 (06:48→19:12)
[2018-05-14] MEDS: Sodium Chloride 0.9% 1,000 ML IV SCH (08:31)
[2018-05-14] MEDS: Famotidine 20 MG TAB PO SCH ×2 (08:32→21:27)
[2018-05-14] MEDS: guaiFENesin ER 600 MG TAB PO SCH ×2 (08:32→21:26)
[2018-05-14] MEDS: Saccharomyces boulardii 250 MG CAP PO SCH (08:32)
[2018-05-14] MEDS: Enoxaparin Sodium 30 MG/0.3 ML SYRINGE SC SCH (08:32)
[2018-05-14] MEDS: Docusate 100 MG CAP PO SCH ×2 (08:32→21:27)
[2018-05-14] MEDS: Aspirin 81 mg Enteric Coated Tablet PO SCH (08:32)
[2018-05-14] MEDS: prednisoLONE Acet 0.12% Ophth Soln 5 ml Bottle EA EYE SCH (08:33)
--- NOTE | 2018-05-14 11:16 | PDOC.PN ---
- Subjective Encounter Start Date: 05/14/18 Encounter Start Time: 09:00 Subjective: awakens easily, not in distress -: seen moving all extremities -: not in distress, has chronic lip smacking and tremors due to antipyschotic - Objective Resuscitation Status: Resuscitation Status DNR:Do Not Resuscitate MAR Reviewed: Yes Vital Signs & Weight: Vital Signs (12 hours) Temp Pulse Resp BP Pulse Ox 05/14/18 08:06 97.7 F 56 L 18 80/40 L 91 L 05/14/18 08:00 92 L 05/14/18 06:24 63 20 94 L 05/14/18 04:00 97.9 F 53 L 18 97/56 L 95 05/14/18 00:00 98.4 F 53 L 20 99/59 L 96 05/13/18 23:40 20 Weight Weight 139 lb 8 oz Result Diagrams: 05/14/18 04:23 05/14/18 04:23 Additional Labs: Accuchecks 05/13/18 10:06 POC Glucose 100 Phys Exam - Physical Examination HEENT: PERRLA, sclera anicteric Neck: no JVD, supple Respiratory: no wheezing, no rales Cardiovascular: RRR, no significant murmur Gastrointestinal: soft, non-tender, positive bowel sounds Musculoskeletal: no edema, pulses present Neurological: non-focal, moves all 4 limbs Dx/Plan (1) GEOVANNA (acute kidney injury) Code(s): N17.9 - ACUTE KIDNEY FAILURE, UNSPECIFIED Status: Acute (2) Dehydration, moderate Code(s): E86.0 - DEHYDRATION Status: Acute (3) Bradycardia Code(s): R00.1 - BRADYCARDIA, UNSPECIFIED Status: Resolved (4) Chronic anemia Code(s): D64.9 - ANEMIA, UNSPECIFIED Status: Chronic (5) Dementia Code(s): F03.90 - UNSPECIFIED DEMENTIA WITHOUT BEHAVIORAL DISTURBANCE Status: Chronic Qualifiers: Dementia type: Alzheimer's disease Alzheimer's disease onset: unspecified onset (6) UTI (urinary tract infection) Status: Acute Qualifiers: Urinary tract infection type: acute cystitis Hematuria presence: without hematuria Qualified Code(s): N30.00 - Acute cystitis without hematuria (7) Anxiety and depression Code(s): F41.9 - ANXIETY DISORDER, UNSPECIFIED; F32.9 - MAJOR DEPRESSIVE DISORDER, SINGLE EPISODE, UNSPECIFIED Status: Chronic Comment: stable (8) COPD (chronic obstructive pulmonary disease) Status: Chronic Qualifiers: COPD type: unspecified COPD Qualified Code(s): J44.9 - Chronic obstructive pulmonary disease, unspecified Comment: stable (9) Dyslipidemia Code(s): E78.5 - HYPERLIPIDEMIA, UNSPECIFIED Status: Chronic Comment: stable (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 Status: Chronic Comment: chronic right hemidiaphram elevation (11) Hypertension Code(s): I10 - ESSENTIAL (PRIMARY) HYPERTENSION Status: Chronic Qualifiers: Hypertension type: essential hypertension Qualified Code(s): I10 - Essential (primary) hypertension Comment: controlled - Plan ct brain to r/o cva/bleed (had bradycardia with hypotension) -: echo to r/o pericardial effusion, d/w son at bedside -: creatinine is a bit better this am around 2.7 from 3.3 -: will check bladder residual, may dc iv fluids if tolerating oral intake -: manual check of BP, continue asp, meropenem, lamictal, zocor * . Review of Systems - Medications/Allergies Allergies/Adverse Reactions: Allergies Allergy/AdvReac Type Severity Reaction Status Date / Time Penicillins Allergy Verified 05/13/18 15:47 Medications: Current Medications Acetaminophen (Tylenol) 650 mg PO Q4H PRN PRN Reason: Headache/Fever or Pain Albuterol/Ipratropium (Duoneb) 3 ml NEB [id number] [facility] Last Admin: 05/14/18 06:24 Dose: 3 ml Arformoterol Tartrate (Brovana) 15 mcg NEB BID-RT [facility] Last Admin: 05/14/18 06:27 Dose: 15 mcg Aspirin (Ecotrin) 81 mg PO DAILY [facility] Last Admin: 05/14/18 08:32 Dose: 81 mg Docusate Sodium (Colace) 100 mg PO BID [facility] Last Admin: 05/14/18 08:32 Dose: 100 mg Enoxaparin Sodium (Lovenox) 30 mg SC 0900 [facility] Last Admin: 05/14/18 08:32 Dose: 30 mg Famotidine (Pepcid) 20 mg PO BID [facility] Last Admin: 05/14/18 08:32 Dose: 20 mg Guaifenesin (Mucinex) 600 mg PO Q12HR [facility] Last Admin: 05/14/18 08:32 Dose: 600 mg Guaifenesin/Dextromethorphan (Robitussin Dm) 15 ml PO Q4H PRN PRN Reason: Cough Sodium Chloride (Normal Saline 0.9%) 1,000 mls @ 80 mls/hr IV .[id number] [facility] Last Admin: 05/14/18 08:31 Dose: 1,000 mls Meropenem 500 mg/ Sodium (Chloride) 100 mls @ 200 mls/hr IVPB 0800,1600,2359 [facility] Last Admin: 05/14/18 08:32 Dose: 100 mls Lamotrigine (Lamictal) 150 mg PO HS [facility] Last Admin: 05/13/18 21:23 Dose: 150 mg Mometasone Furoate/Formoterol Fumar (Dulera 200 Mcg/5 Mcg Inhaler) 2 puff INH BID-RT [facility] Last Admin: 05/14/18 06:48 Dose: 2 puff Prednisolone Acetate (Pred Mild 0.12% Opth Susp) 1 drop EA EYE DAILY [facility] Last Admin: 05/14/18 08:33 Dose: Not Given Saccharomyces Boulardii (Florastor) 250 mg PO DAILY [facility] Last Admin: 05/14/18 08:32 Dose: 250 mg Simvastatin (Zocor) 40 mg PO HS [facility] Last Admin: 05/13/18 21:23 Dose: 40 mg Sodium Chloride (Flush - Normal Saline) 10 ml IVF PRN PRN PRN Reason: Saline Flush
--- NOTE | 2018-05-14 12:17 | CT ---
CT BRAIN WITHOUT CONTRAST: Date: 05/14/18 HISTORY: Altered mental status. FINDINGS: Comparison made with exam of 12/30/17. 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 The ventricular size is stable and the basilar cisterns are patent. N o evidence of acute infarct, hemorrhage, midline shift, or abnormal extra-axial fluid collections are seen. The bony calvarium is intact. The visualized paranasal sinuses and mastoid air cells are well aerated. IMPRESSION: No CT evidence of acute intracranial process. POS: [facility]
[2018-05-14] MEDS ORDERED: Sodium Chloride 0.9% 250 ML 200 ML IVPB SCH (12:30)
--- NOTE | 2018-05-14 16:40 | CON ---
DATE OF CONSULTATION: 05/14/2018 REASON FOR CONSULTATION: Elevated creatinine. HISTORY OF PRESENT ILLNESS: This is a very pleasant 83-year-old female, who was admitted yesterday with a creatinine of more than 3.3. The patient can give no further history. The patient was bradycardic and was possibly septic. Her blood pressure was in the low 80s and she was on Bactrim. Her creatinine was more than 3.3. PAST MEDICAL/SURGICAL HISTORY: Significant for fibrosis, hyperlipidemia, history of respiratory failure, intubation, hip replacement, ankle surgery, depression, anxiety, dementia. HOME MEDICATIONS: List reviewed. HOSPITAL MEDICATIONS: Reviewed. ALLERGIES: Reviewed. REVIEW OF SYSTEMS: Unobtainable. PHYSICAL EXAMINATION: GENERAL: Patient is resting. VITAL SIGNS: Afebrile, pulse 75, breathing 16, blood pressure was 103/60. GENERAL APPEARANCE AND MENTAL STATUS: Fair. HEAD/NECK: Normocephalic. Atraumatic. EYES: EOMI. No deformity. EARS: Clear. No ulcers. NOSE: Intact. No lesions. MOUTH: Clear. No discharge. THROAT: Clear. No exudate. LUNGS: Clear. No crackles. CARDIAC: S1, S2. No rub. ABDOMEN: Benign. BS+. GENITALIA/RECTUM: Suarez absent. BACK/EXTREMITIES: Edema 0+, ulcer. NEUROLOGICAL: Alert and motor intact. SKIN: Rash - bruise. LYMPHATICS: Edema - ulcer. LABORATORY DATA: Hemoglobin 10.2, creatinine 2.7. ASSESSMENT AND RECOMMENDATIONS: 1. Acute kidney injury with chronic kidney disease because of Bactrim and possibly sepsis and hypertension. Recommend aggressive hydration. 2. Anemia, stable. 3. Metabolic acidosis, stable. No indication for dialysis. Above findings were discussed with the patient's daughter, who was not present. The renal imaging study did not show any hydronephrosis. Again, there is no indication for dialysis. We will follow the patient's renal function closely. [facility]
[2018-05-14] MEDS: Simvastatin 40 MG TAB PO SCH (21:26)
[2018-05-14] MEDS: lamoTRIgine 100 MG TAB PO SCH (21:27)
[2018-05-15] MEDS: Meropenem 500 MG in Sodium Chloride 0.9% 100 ML IVPB SCH (00:24)
[2018-05-15] MEDS: Arformoterol 15 MCG/2 ML NEB NEB SCH ×2 (06:10→20:02)
[2018-05-15] MEDS: Mometasone/Formoterol 120 PUFF INHALER INH SCH ×2 (06:10→19:48)
[2018-05-15] MEDS: Famotidine 20 MG TAB PO SCH ×2 (08:20→20:09)
[2018-05-15] MEDS: Saccharomyces boulardii 250 MG CAP PO SCH (08:21)
[2018-05-15] MEDS: guaiFENesin ER 600 MG TAB PO SCH ×2 (08:21→20:09)
[2018-05-15] MEDS: Aspirin 81 mg Enteric Coated Tablet PO SCH (08:21)
[2018-05-15] MEDS: Enoxaparin Sodium 30 MG/0.3 ML SYRINGE SC SCH (08:21)
[2018-05-15] MEDS: Docusate 100 MG CAP PO SCH ×2 (08:21→20:09)
[2018-05-15] MEDS: prednisoLONE Acet 0.12% Ophth Soln 5 ml Bottle EA EYE SCH (08:22)
[2018-05-15 09:57] LABS: Anion Gap 12 mmol/L (10-20); BUN (Urea Nitrogen) 40 mg/dL (9.8-20.1); Calc. Creatinine Clearance 23 mL/min (70-130); Calcium 8.6 mg/dL (7.8-10.44); Carbon Dioxide 20 mmol/L (23-31); Chloride 113 mmol/L (98-107); Estimated GFR-MDRD 26; Glucose 94 mg/dL (83-110); Potassium 4.8 mmol/L (3.5-5.1); Sodium 140 mmol/L (136-145)
--- NOTE | 2018-05-15 10:14 | PDOC.PN ---
- Subjective Encounter Start Date: 05/15/18 Encounter Start Time: 08:35 Subjective: awake, responds to verbal questions well -: not in distress - Objective Resuscitation Status: Resuscitation Status DNR:Do Not Resuscitate MAR Reviewed: Yes Vital Signs & Weight: Vital Signs (12 hours) Temp Pulse Resp BP BP Pulse Ox 05/15/18 08:00 97 05/15/18 07:36 97.3 F L 67 18 149/75 H 97 05/15/18 06:07 71 16 98 05/15/18 04:00 98.3 F 67 20 129/64 100 05/15/18 00:00 97.4 F L 57 L 18 168/71 H 93 L 05/14/18 23:59 60 16 Weight Weight 138 lb 14.259 oz Result Diagrams: 05/14/18 04:23 05/15/18 05:00 Phys Exam - Physical Examination HEENT: PERRLA, sclera anicteric Neck: no JVD, supple Respiratory: no wheezing, no rales Cardiovascular: RRR, no significant murmur Gastrointestinal: soft, non-tender, positive bowel sounds Musculoskeletal: no edema, pulses present Neurological: non-focal, moves all 4 limbs Dx/Plan (1) GEOVANNA (acute kidney injury) Code(s): N17.9 - ACUTE KIDNEY FAILURE, UNSPECIFIED Status: Acute (2) Dehydration, moderate Code(s): E86.0 - DEHYDRATION Status: Resolved (3) Bradycardia Code(s): R00.1 - BRADYCARDIA, UNSPECIFIED Status: Resolved (4) Chronic anemia Code(s): D64.9 - ANEMIA, UNSPECIFIED Status: Chronic (5) Dementia Code(s): F03.90 - UNSPECIFIED DEMENTIA WITHOUT BEHAVIORAL DISTURBANCE Status: Chronic Qualifiers: Dementia type: Alzheimer's disease Alzheimer's disease onset: unspecified onset (6) UTI (urinary tract infection) Status: Resolved Qualifiers: Urinary tract infection type: acute cystitis Hematuria presence: without hematuria Qualified Code(s): N30.00 - Acute cystitis without hematuria (7) Anxiety and depression Code(s): F41.9 - ANXIETY DISORDER, UNSPECIFIED; F32.9 - MAJOR DEPRESSIVE DISORDER, SINGLE EPISODE, UNSPECIFIED Status: Chronic Comment: stable (8) COPD (chronic obstructive pulmonary disease) Status: Chronic Qualifiers: COPD type: unspecified COPD Qualified Code(s): J44.9 - Chronic obstructive pulmonary disease, unspecified Comment: stable (9) Dyslipidemia Code(s): E78.5 - HYPERLIPIDEMIA, UNSPECIFIED Status: Chronic Comment: stable (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 Status: Chronic Comment: chronic right hemidiaphram elevation (11) Hypertension Code(s): I10 - ESSENTIAL (PRIMARY) HYPERTENSION Status: Chronic Qualifiers: Hypertension type: essential hypertension Qualified Code(s): I10 - Essential (primary) hypertension Comment: controlled - Plan renal function is trending to her baseline slowly, creatinine around 1.8 -: encourage po intake of fluids and food -: echo is pending, to r/o pericardial effusion -: oob to chair and mobilize as tolerated -: will dc trihexifenidyl from home meds due to bradycardia * . Review of Systems - Medications/Allergies Allergies/Adverse Reactions: Allergies Allergy/AdvReac Type Severity Reaction Status Date / Time Penicillins Allergy Verified 05/13/18 15:47 Medications: Current Medications Acetaminophen (Tylenol) 650 mg PO Q4H PRN PRN Reason: Headache/Fever or Pain Albuterol/Ipratropium (Duoneb) 3 ml NEB [id number] [facility] Last Admin: 05/15/18 06:07 Dose: 3 ml Arformoterol Tartrate (Brovana) 15 mcg NEB BID-RT [facility] Last Admin: 05/15/18 06:10 Dose: 15 mcg Aspirin (Ecotrin) 81 mg PO DAILY [facility] Last Admin: 05/15/18 08:21 Dose: 81 mg Docusate Sodium (Colace) 100 mg PO BID [facility] Last Admin: 05/15/18 08:21 Dose: 100 mg Enoxaparin Sodium (Lovenox) 30 mg SC 09 [facility] Last Admin: 05/15/18 08:21 Dose: 30 mg Famotidine (Pepcid) 20 mg PO BID [facility] Last Admin: 05/15/18 08:20 Dose: 20 mg Guaifenesin (Mucinex) 600 mg PO Q12HR [facility] Last Admin: 05/15/18 08:21 Dose: 600 mg Guaifenesin/Dextromethorphan (Robitussin Dm) 15 ml PO Q4H PRN PRN Reason: Cough Lamotrigine (Lamictal) 150 mg PO HS [facility] Last Admin: 05/14/18 21:27 Dose: 150 mg Mometasone Furoate/Formoterol Fumar (Dulera 200 Mcg/5 Mcg Inhaler) 2 puff INH BID-RT [facility] Last Admin: 05/15/18 06:10 Dose: 2 puff Prednisolone Acetate (Pred Mild 0.12% Opth Susp) 1 drop EA EYE DAILY [facility] Last Admin: 05/15/18 08:22 Dose: 1 drp Saccharomyces Boulardii (Florastor) 250 mg PO DAILY [facility] Last Admin: 05/15/18 08:21 Dose: 250 mg Simvastatin (Zocor) 40 mg PO HS [facility] Last Admin: 05/14/18 21:26 Dose: 40 mg Sodium Chloride (Flush - Normal Saline) 10 ml IVF PRN PRN PRN Reason: Saline Flush
--- NOTE | 2018-05-15 17:47 | PRG ---
DATE OF SERVICE: 05/15/2018 SUBJECTIVE: This is an 83-year-old female being seen for acute kidney injury, improving creatinine. The patient remains nonverbal. PHYSICAL EXAMINATION: GENERAL: Patient is resting. VITAL SIGNS: Afebrile, pulse 52, breathing 16, blood pressure 125/55. HEAD/NECK: Normocephalic. Atraumatic. EYES: EOMI. No deformity. EARS: Clear. No ulcers. NOSE: Intact. No lesions. MOUTH: Clear. No discharge. THROAT: Clear. No exudate. LUNGS: Clear. No crackles. CARDIAC: S1, S2. No rub. ABDOMEN: Benign. BS+. GENITALIA/RECTUM: Suarez absent. BACK/EXTREMITIES: Edema 0+ Ulcer- NEUROLOGICAL: Alert and motor intact. SKIN: Rash- Bruise- LYMPHATICS: Edema- Ulcer- LABORATORY DATA: Show hemoglobin 10.2 and creatinine 1.8. ASSESSMENT AND RECOMMENDATIONS: 1. Acute kidney injury, improved. 2. Chronic kidney disease stage 4, stable. 3. Hypertension, stable. 4. Acute tubular necrosis, improved. No indication for dialysis. We will follow closely. Can stop IV fluids.
[2018-05-15] MEDS: Simvastatin 40 MG TAB PO SCH (20:09)
[2018-05-15] MEDS: lamoTRIgine 100 MG TAB PO SCH (20:09)
[2018-05-16] MEDS: Arformoterol 15 MCG/2 ML NEB NEB SCH (06:29)
[2018-05-16] MEDS: Mometasone/Formoterol 120 PUFF INHALER INH SCH (06:31)
[2018-05-16] MEDS: Famotidine 20 MG TAB PO SCH (07:37)
[2018-05-16] MEDS: Docusate 100 MG CAP PO SCH (07:38)
[2018-05-16] MEDS: guaiFENesin ER 600 MG TAB PO SCH (07:38)
[2018-05-16] MEDS: Saccharomyces boulardii 250 MG CAP PO SCH (07:38)
[2018-05-16] MEDS: prednisoLONE Acet 0.12% Ophth Soln 5 ml Bottle EA EYE SCH (07:39)
[2018-05-16] MEDS: Enoxaparin Sodium 30 MG/0.3 ML SYRINGE SC SCH (07:39)
[2018-05-16] MEDS: Aspirin 81 mg Enteric Coated Tablet PO SCH (07:39)
[2018-05-16 08:30] VITALS: TEMP 98.3
--- NOTE | 2018-05-16 09:17 | PRG ---
DATE OF SERVICE: 05/16/2018 SUBJECTIVE: This is an 83-year-old female being seen for acute kidney injury. The patient is nonverbal. PHYSICAL EXAMINATION: GENERAL: Patient is resting. VITAL SIGNS: Afebrile, pulse 63, breathing 16, blood pressure 148/76. OBJECTIVE: See above. Awake, alert, in no acute distress. GENERAL APPEARANCE AND MENTAL STATUS: Fair. HEAD/NECK: Normocephalic. Atraumatic. EYES: EOMI. No deformity. EARS: Clear. No ulcers. NOSE: Intact. No lesions. MOUTH: Clear. No discharge. THROAT: Clear. No exudate. LUNGS: Clear. No crackles. CARDIAC: S1, S2. No rub. ABDOMEN: Benign. BS+. GENITALIA/RECTUM: Suarez absent. BACK/EXTREMITIES: Edema 0+ Ulcer- NEUROLOGICAL: Alert and motor intact. SKIN: Rash- Bruise- LYMPHATICS: Edema- Ulcer- LABORATORY DATA: Creatinine is 1.32. ASSESSMENT AND RECOMMENDATIONS: 1. Chronic kidney disease stage 3, stable. 2. Acute kidney injury with acute tubular necrosis, improving. 3. Hypertension, stable. 4. Anemia, stable. 5. Medication based on glomerular filtration rate are appropriate. I will stop IV fluids and the patient should be ready for discharge. I will sign off MTDD
[2018-05-16 09:51] LABS: Anion Gap 11 mmol/L (10-20); BUN (Urea Nitrogen) 26 mg/dL (9.8-20.1); Calc. Creatinine Clearance 32 mL/min (70-130); Calcium 9.3 mg/dL (7.8-10.44); Carbon Dioxide 22 mmol/L (23-31); Chloride 112 mmol/L (98-107); Estimated GFR-MDRD 38; Glucose 107 mg/dL (83-110); Potassium 4.5 mmol/L (3.5-5.1); Sodium 140 mmol/L (136-145)
--- NOTE | 2018-05-16 13:19 | PDOC.PN ---
- Subjective Encounter Start Date: 05/16/18 Encounter Start Time: 09:00 Subjective: awake, slept well last night -: no new weakness, feels better -: no abd pain or nausea - Objective Resuscitation Status: Resuscitation Status DNR:Do Not Resuscitate MAR Reviewed: Yes Vital Signs & Weight: Vital Signs (12 hours) Temp Pulse Resp BP BP Pulse Ox 05/16/18 08:00 98.3 F 63 20 148/76 H 99 05/16/18 06:29 61 30 H 96 05/16/18 05:22 67 20 96 05/16/18 04:00 97.6 F 84 20 152/79 H 94 L Weight Weight 139 lb 15.896 oz I&O: 05/15/18 05/16/18 05/17/18 06:59 06:59 06:59 Intake Total 200 Balance 200 Result Diagrams: 05/14/18 04:23 05/16/18 09:02 Phys Exam - Physical Examination HEENT: PERRLA, moist MMs Neck: no JVD, supple Respiratory: no wheezing, no rales Cardiovascular: RRR, no significant murmur Gastrointestinal: soft, non-tender, positive bowel sounds Musculoskeletal: no edema, pulses present Neurological: non-focal, moves all 4 limbs Dx/Plan (1) GEOVANNA (acute kidney injury) Code(s): N17.9 - ACUTE KIDNEY FAILURE, UNSPECIFIED Status: Acute Comment: resolving (2) Dehydration, moderate Code(s): E86.0 - DEHYDRATION Status: Resolved (3) Bradycardia Code(s): R00.1 - BRADYCARDIA, UNSPECIFIED Status: Resolved (4) Chronic anemia Code(s): D64.9 - ANEMIA, UNSPECIFIED Status: Chronic (5) Dementia Code(s): F03.90 - UNSPECIFIED DEMENTIA WITHOUT BEHAVIORAL DISTURBANCE Status: Chronic Qualifiers: Dementia type: Alzheimer's disease Alzheimer's disease onset: unspecified onset (6) UTI (urinary tract infection) Status: Resolved Qualifiers: Urinary tract infection type: acute cystitis Hematuria presence: without hematuria Qualified Code(s): N30.00 - Acute cystitis without hematuria (7) Anxiety and depression Code(s): F41.9 - ANXIETY DISORDER, UNSPECIFIED; F32.9 - MAJOR DEPRESSIVE DISORDER, SINGLE EPISODE, UNSPECIFIED Status: Chronic Comment: stable (8) COPD (chronic obstructive pulmonary disease) Status: Chronic Qualifiers: COPD type: unspecified COPD Qualified Code(s): J44.9 - Chronic obstructive pulmonary disease, unspecified Comment: stable (9) Dyslipidemia Code(s): E78.5 - HYPERLIPIDEMIA, UNSPECIFIED Status: Chronic Comment: stable (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 Status: Chronic Comment: chronic right hemidiaphram elevation (11) Hypertension Code(s): I10 - ESSENTIAL (PRIMARY) HYPERTENSION Status: Chronic Qualifiers: Hypertension type: essential hypertension Qualified Code(s): I10 - Essential (primary) hypertension Comment: controlled - Plan hemostable -: may dc to rehab if accepted -: d/w son over phone -: creatinine is 1.3 this am, no sob, off iv fluids x 30hrs -: continue asp, zocor, lamictal and nebs prn * . Review of Systems - Medications/Allergies Allergies/Adverse Reactions: Allergies Allergy/AdvReac Type Severity Reaction Status Date / Time Penicillins Allergy Verified 05/13/18 15:47 Medications: Current Medications Acetaminophen (Tylenol) 650 mg PO Q4H PRN PRN Reason: Headache/Fever or Pain Last Admin: 05/15/18 20:14 Dose: 650 mg Albuterol/Ipratropium (Duoneb) 3 ml NEB [id number] [facility] Last Admin: 05/16/18 05:22 Dose: 3 ml Arformoterol Tartrate (Brovana) 15 mcg NEB BID-RT [facility] Last Admin: 05/16/18 06:29 Dose: 15 mcg Aspirin (Ecotrin) 81 mg PO DAILY [facility] Last Admin: 05/16/18 07:39 Dose: 81 mg Docusate Sodium (Colace) 100 mg PO BID [facility] Last Admin: 05/16/18 07:38 Dose: 100 mg Enoxaparin Sodium (Lovenox) 30 mg SC 0900 [facility] Last Admin: 05/16/18 07:39 Dose: 30 mg Famotidine (Pepcid) 20 mg PO BID [facility] Last Admin: 05/16/18 07:37 Dose: 20 mg Guaifenesin (Mucinex) 600 mg PO Q12HR [facility] Last Admin: 05/16/18 07:38 Dose: 600 mg Guaifenesin/Dextromethorphan (Robitussin Dm) 15 ml PO Q4H PRN PRN Reason: Cough Lamotrigine (Lamictal) 150 mg PO HS [facility] Last Admin: 05/15/18 20:09 Dose: 150 mg Mometasone Furoate/Formoterol Fumar (Dulera 200 Mcg/5 Mcg Inhaler) 2 puff INH BID-RT [facility] Last Admin: 05/16/18 06:31 Dose: 2 puff Prednisolone Acetate (Pred Mild 0.12% Opth Susp) 1 drop EA EYE DAILY [facility] Last Admin: 05/16/18 07:39 Dose: 1 drp Saccharomyces Boulardii (Florastor) 250 mg PO DAILY [facility] Last Admin: 05/16/18 07:38 Dose: 250 mg Simvastatin (Zocor) 40 mg PO HS [facility] Last Admin: 05/15/18 20:09 Dose: 40 mg Sodium Chloride (Flush - Normal Saline) 10 ml IVF PRN PRN PRN Reason: Saline Flush
[2018-05-16 17:12] VITALS: BP 161/73
--- NOTE | 2018-05-17 00:01 | DIS ---
DATE OF ADMISSION: 05/13/2018 DATE OF DISCHARGE: 05/16/2018 DISCHARGE DISPOSITION: To inpatient rehabilitation. PRIMARY DISCHARGE DIAGNOSES: Acute kidney injury, severe dehydration, bradycardia all improved, rece nt urinary tract infection, dementia, chronic anemia, chronic obstructive pulmonary disease, dyslipid emia, chronic elevation of right hemidiaphragm, hypertension, anxiety, depression. PROCEDURES DONE DURING HOSPITALIZATION: Patient has had chest x-ray done, which showed chronic eleva tion of right hemidiaphragm, no cathi infiltrate was seen. CT of the abdomen and pelvis without cont rast done showed no evidence of nephrolithiasis or obstructive uropathy. CT brain done showed no acu te intracranial process. Echo with 2D Doppler showed EF of 60%-65%. Blood cultures x2 no growth. Ur ine culture no growth. White count of 6, H&H 11 and 37, platelet count 218. Discharge BUN and creat inine is 26 and 1.3. BNP 1347. Cortisol 12.6. Initial BUN and creatinine were 52 and 3.3. Albumin of 3.3. INPATIENT CONSULTS: Dr. Zee for nephrology. DISCHARGE MEDICATIONS: Aspirin 81 mg p.o. daily, Symbicort inhaler 160/4.5 mcg 2 puffs twice daily, Pristiq 100 mg p.o. daily, gabapentin 300 mg p.o. at bedtime, lamotrigine 150 mg p.o. at bedtime, jeannette tazapine 7.5 mg p.o. at bedtime, Zocor 40 mg p.o. at bedtime, Norvasc 10 mg p.o. daily, Brovana nebul izer twice daily, Colace 100 mg twice daily, DuoNebs q.6 hourly p.r.n., Protonix 40 mg daily, Florast or 250 mg p.o. daily. ALLERGIES: PENICILLIN. DISCHARGE PLAN: Patient to follow up with primary care physician in 1 week and her neurologist in 2- 4 weeks. BRIEF COURSE DURING HOSPITALIZATION: Patient initially was brought from home with generalized weakne ss and progressive lethargic. On arrival in the ER, patient was found to have had acute kidney injur y. She was also dehydrated. Patient was also on treatment with Bactrim for her recent urinary tract infection. She was gently hydrated after admission to medical floor. She was on broad spectrum ant ibiotics. Her cultures have been negative, likely this is due to her recent intake of Bactrim. Abdo heather and pelvic CAT scan done did not reveal any obstructive uropathy. She had a CT brain done, [facility] did not reveal any acute intracranial pathology. Patient likely was progressively getting weak du e to acute kidney injury and [id number] dehydration, which have all been corrected at present . Patient is participating with physical therapy and due to deconditioning, she is being discharged to inpatient rehab for further recuperation. I have given complete updates to patient's son over the phone. A total of 35 minutes was spent on discharge plan. Please see a [id number] documentation on [facility] for the day of discharge.
== END 2018-05-16 17:10 | DRG 871 ==
LOC: ERS 10:01 → T4-A 15:22
PROVIDERS: ADMIT Internal Medicine; ATTEND Internal Medicine
DX: A41.9 Sepsis, unspecified organism (principal); N17.0 Acute kidney failure with tubular necrosis; N30.00 Acute cystitis without hematuria; E87.2 Acidosis; E86.0 Dehydration; F03.90 Unspecified dementia, unspecified severity, without behavioral disturbance, psychotic disturbance, mood disturbance, and anxiety; J84.10 Pulmonary fibrosis, unspecified; E78.5 Hyperlipidemia, unspecified; Z96.643 Presence of artificial hip joint, bilateral; F32.9 Major depressive disorder, single episode, unspecified; F41.9 Anxiety disorder, unspecified; Z66 Do not resuscitate; R00.1 Bradycardia, unspecified; D64.9 Anemia, unspecified; I12.9 Hypertensive chronic kidney disease with stage 1 through stage 4 chronic kidney disease, or unspecified chronic kidney disease; N18.3 Chronic kidney disease, stage 3 (moderate); J44.9 Chronic obstructive pulmonary disease, unspecified; J98.6 Disorders of diaphragm; Z88.0 Allergy status to penicillin; Z80.9 Family history of malignant neoplasm, unspecified; Z81.1 Family history of alcohol abuse and dependence
CPT/HCPCS: 36415; 36416; 51701; 70450; 71045; 74176; 80048; 80053; 81003; 81015; 82533; 82553; 83880; 84484; 85025; 87040; 87086; 93005; 93306; 94640; 94664; 94760; 96360; 96361; A4353; G8978-GP-CN; G8979-GP-CK; G8987-GO-CM; G8988-GO-CM; G8989-GO-CM; J1650; J2185; J7050; J7620

== ENCOUNTER 2018-08-26 17:47 | Inpatient (IN) | payer MEDICARE, OTHER ==
[2018-08-26 18:25] LABS: #Lymphocytes 2.8 thou/uL (1.20-3.40); #Monocytes 0.5 thou/uL (0.11-0.59); #Neutrophils 4.7 thou/uL (1.40-6.50); %Basophils 0.5 % (0.0-1.0); %Eosinophils 0.2 % (0.0-10.0); %Lymphocytes 34.9 % (21.0-51.0); %Monocytes 5.9 % (0.0-10.0); %Neutrophils 58.5 % (42.0-75.0); Hemoglobin 12.6 g/dL (12.0-16.0); Mean Corpuscular HGB CONC 31.4 g/dL (32.0-36.0); Mean Corpuscular Hemoglobin 29.2 pg (27.0-31.0); Mean Platelet Volume 8.2 fL (7.4-10.4); Platelet Count 187 thou/uL (130-400); RBC Distribution Width 14.4 % (11.5-14.5); Red Blood Cell (RBC) Count 4.33 mill/uL (4.20-5.40); White Blood Cell (WBC) Count 7.9 thou/uL (4.8-10.8)
[2018-08-26] MEDS ORDERED: Acetaminophen 500 MG TAB ONE (18:34)
--- NOTE | 2018-08-26 18:43 | RAD ---
PORTABLE CHEST: 08/26/2018 PROVIDED CLINICAL HISTORY: Cough. COMPARISON: 05/13/2018 FINDINGS: The cardiac and mediastinal silhouette are within normal limits. Vascular calcification is seen. Th ere is persistent elevation of the right hemidiaphragm. Linear densities in the left lower lung zone likely reflect subsegmental atelectasis. No lobar consolidation, pleural fluid, or pneumothorax gurvinder arent. IMPRESSION: No definite evidence for an acute cardiopulmonary process. POS: ZEHRAH
[2018-08-26 18:49] LABS: ALT (SGPT) 14 U/L (8-55); AST (SGOT) 31 U/L (5-34); Albumin 3.6 g/dL (3.4-4.8); Alkaline Phosphatase 91 U/L (40-150); Anion Gap 17 mmol/L (10-20); BUN (Urea Nitrogen) 32 mg/dL (9.8-20.1); Bilirubin, Total 0.3 mg/dL (0.2-1.2); Calc. Creatinine Clearance 0 mL/min (70-130); Calcium 9.3 mg/dL (7.8-10.44); Carbon Dioxide 24 mmol/L (23-31); Chloride 104 mmol/L (98-107); Estimated GFR-MDRD 36; Globulin 3.5 g/dL (2.4-3.5); Glucose 111 mg/dL (83-110); Potassium 4.6 mmol/L (3.5-5.1); Protein, Total 7.1 g/dL (6.0-8.3); Sodium 140 mmol/L (136-145)
[2018-08-26] MEDS ORDERED: Ibuprofen 800 MG TAB ONE (18:56)
[2018-08-26 19:38] LABS: Bilirubin Negative (Negative); Blood, Urine Small (Negative); Clarity CLEAR (Clear); Glucose, Urine (Dipstick) Negative (Negative); Leukocyte Small (Negative); Nitrite Negative (Negative); Protein, Urine (Dipstick) 30 mg/dL (Neg-Trace); Specific Gravity, Urine 1.017 (1.002-1.036); Urobilinogen 0.2 mg/dL (0.2-1.0)
[2018-08-26 19:39] LABS: Bacteria/HPF None Seen HPF (None Seen); Hyaline Casts/LPF 4-6 HYALINE CAST LPF (0-3 Hyaline); Pathc Cast-AUWi Flag 0.87 (0-2.49); Squamous Epithelial 0-3 HPF (0-3)
[2018-08-26 23:50] VITALS: BMI 24.5
[2018-08-27] MEDS ORDERED: Docusate 100 MG CAP PO PRN (01:02)
[2018-08-27] MEDS ORDERED: Acetaminophen 325 MG TAB PO PRN (01:05)
--- NOTE | 2018-08-27 02:05 | HP ---
CHIEF COMPLAINT: The patient actually does not know why she is here, but she was actually brought in for hypoxia. HISTORY OF PRESENT ILLNESS: This patient is an 83-year-old female who presented via the emergency department. The patient herself states she was actually feeling okay. She has had some cough at home, but otherwise felt well. She denies any fevers. Apparently, the patient has a design assistant with her 24 hours a day. She has a history of some significant COPD/pulmonary fibrosis and mild chronic respiratory failure at times requiring some home oxygen. The patient has apparently not required home oxygen of late, home health nurse came to visit her today and found that she was hypoxic with O2 saturation at 83% and the patient was then brought to the hospital by EMS and was febrile at 101.2 on arrival. The patient currently states her primary issue is that she has cough and again, she denies any fevers or chills or chest pains. REVIEW OF SYSTEMS: Other than those things noted in the history of present illness, all other systems were reviewed and were negative. PAST MEDICAL HISTORY: COPD, pulmonary fibrosis, hypertension, dyslipidemia; history of respiratory failure, requiring intubation. PAST SURGICAL HISTORY: Bilateral hip replacement, right ankle fracture with ORIF. PAST PSYCHIATRIC HISTORY: Anxiety and depression. FAMILY HISTORY: Records indicate there is no premature coronary artery disease, stroke, or cancer within the patient's family. ALLERGIES: PENICILLIN. SOCIAL HISTORY: Again, the patient lives at home. She has a 24-hour caregivers. No history of alcohol, tobacco, or drug use. In the past, the patient has been made DNR by her children. Presently, the patient indicates that she would like to be full code. She does identify her daughter Migdalia as her surrogate decision maker. ER COURSE: The patient had DuoNebs and IV Levaquin administered. CURRENT MEDICATIONS: 1. Diovan HCT 320/25 one p.o. daily. 2. Lamotrigine 150 mg at bedtime. 3. Docusate 100 p.o. b.i.d. p.r.n. 4. Simvastatin 40 mg at bedtime. 5. Zetonna one spray at bedtime. 6. Symbicort 2 inhalations b.i.d. 7. Aspirin 81 mg daily. 8. Gabapentin 300 mg at bedtime. 9. Pristiq 100 mg daily. 10. DuoNebs q.6 hours p.r.n. 11. Protonix 40 mg daily. 12. Remeron 7.5 mg at bedtime. 13. Prednisolone acetate eye drops one drop each eye daily. 14. Tobramycin/loteprednol one drop to each eye q.4 hours. 15. Guaifenesin ER 600 mg q.12h. 16. Norvasc 10 mg daily. PHYSICAL EXAMINATION: VITAL SIGNS: Temperature 99.3, pulse 65, respirations 20, O2 saturation 94% on 2 L nasal cannula, and blood pressure 120/67. GENERAL APPEARANCE: Age-appropriate female, she is in no distress. She is awake and alert. HEENT: PERRL, no OP lesions. She has very drying and peeling lips. NECK: Symmetric without lymphadenopathy, JVD, or carotid bruits. HEART: Regular rate and rhythm without murmurs, gallops, or rubs. LUNGS: Revealed bilateral scattered fine rales, especially in the bases with fair air exchange. ABDOMEN: Soft, nontender, and nondistended. Positive bowel sounds. No masses and no organomegaly. EXTREMITIES: No cyanosis, clubbing, or edema. PSYCHIATRIC: The patient appears to have some degree of dementia. She is not sure why she is in the hospital and does not seem to recall much of the events surrounding her presentation to the hospital, although she can generally have a fairly conversation. It is coherent. She has normal affect and behavior. NEUROLOGIC: Otherwise, neurologically she is intact with no focal deficits. Moves all extremities spontaneously. Cranial nerves appear to be intact. LABORATORY DATA: White count 7.9, hemoglobin 12.6, and platelets 187. Sodium 140, potassium 4.6, chloride 104, CO2 of 24, BUN 32, creatinine 1.41, glucose 111, lactic acid 1.6, and calcium 9.3. AST is 31, ALT 14. BNP 69. Troponin 0.017. Albumin 3.6. Urinalysis shows 7 to 10 white cells, 7 to 10 red cells, small leukocyte esterase. Flu screen negative. Chest x-ray, no definitive evidence of acute cardiopulmonary process, chronically elevated right hemidiaphragm. IMPRESSION AND PLAN: 1. Acute on chronic hypoxic respiratory failure. The patient had low oxygen saturations noted at home at 83% by home health nurse today. This comes in the setting of a patient with chronic pulmonary fibrosis and chronic obstructive pulmonary disease, who also has an acute febrile illness. The patient will have supplemental oxygen and continue DuoNebs. She may need some steroids, but will defer that to Pulmonology given her underlying potential infectious etiology. 2. Fever, unclear etiology. Urinalysis is negative. Chest x-ray does not show any evidence of acute infection. She has a normal white blood cell count. Flu screen is negative. She received a dose of Levaquin in the emergency department. We will continue to follow fever trends and will not order ongoing antibiotics as of yet. 3. Chronic kidney disease stage 3. Her current creatinine is consistent with some of her previous readings in the past. Her creatinine was going to size 3.36 and most recently as low as 0.9 in 05/2018. She appears to be slightly prerenal in nature and we will give her some gentle hydration with normal saline at 75 mL an hour. 4. Hypertension. Continue with her usual home medications. Holding the diuretic. 5. Possible dementia. The patient's children were making status decisions for her previously. We will need to establish contact with them in the morning to determine the patient's overall level of dementia and decision-making capacity. The patient has presently asked to be full code. We will keep that intact until family can be contacted in the morning. Should the need arise, we will try to contact them tonight. Job ID: [id number]
[2018-08-27] MEDS: Sodium Chloride 0.9% 1,000 ML IV SCH ×3 (03:40→17:50)
[2018-08-27] MEDS ORDERED: Benzonatate 100 MG CAP PO SCH (04:15)
[2018-08-27] MEDS ORDERED: TOBRAMYCIN EA EYE SCH (05:00)
[2018-08-27] MEDS ORDERED: LOTEPRED ETAB EA EYE SCH (05:00)
[2018-08-27 05:14] LABS: #Eosinphils 0.1 thou/uL (0.0-0.7); #Lymphocytes 1.4 thou/uL (1.20-3.40); #Monocytes 0.4 thou/uL (0.11-0.59); #Neutrophils 3.7 thou/uL (1.40-6.50); %Basophils 0.3 % (0.0-1.0); %Eosinophils 1.1 % (0.0-10.0); %Lymphocytes 24.9 % (21.0-51.0); %Monocytes 7.3 % (0.0-10.0); %Neutrophils 66.3 % (42.0-75.0); Hemoglobin 10.9 g/dL (12.0-16.0); Mean Corpuscular Hemoglobin 29.7 pg (27.0-31.0); Mean Corpuscular Volume 92.7 fL (78.0-98.0); Mean Platelet Volume 7.7 fL (7.4-10.4); Platelet Count 150 thou/uL (130-400); RBC Distribution Width 14.1 % (11.5-14.5); Red Blood Cell (RBC) Count 3.67 mill/uL (4.20-5.40); White Blood Cell (WBC) Count 5.5 thou/uL (4.8-10.8)
[2018-08-27 05:33] LABS: Anion Gap 11 mmol/L (10-20); BUN (Urea Nitrogen) 28 mg/dL (9.8-20.1); Calc. Creatinine Clearance 33 mL/min (70-130); Calcium 8.7 mg/dL (7.8-10.44); Carbon Dioxide 28 mmol/L (23-31); Chloride 106 mmol/L (98-107); Estimated GFR-MDRD 41; Glucose 94 mg/dL (83-110); Potassium 3.9 mmol/L (3.5-5.1); Sodium 141 mmol/L (136-145)
[2018-08-27] MEDS: Mometasone/Formoterol 120 PUFF INHALER INH SCH ×2 (07:55→19:57)
[2018-08-27] MEDS ORDERED: Desvenlafaxine Succinate [Pristiq] 100 MG PO SCH (09:00)
[2018-08-27] MEDS: Aspirin 81 mg Enteric Coated Tablet PO SCH (12:04)
[2018-08-27] MEDS: Enoxaparin Sodium 40 MG/0.4 ML SYRINGE SC SCH (12:04)
[2018-08-27] MEDS: prednisoLONE Acet 0.12% Ophth Soln 5 ml Bottle EA EYE SCH (12:04)
[2018-08-27] MEDS: Valsartan 80 MG TAB PO SCH (12:04)
[2018-08-27] MEDS: Benzonatate 100 MG CAP PO PRN (12:04)
--- NOTE | 2018-08-27 12:46 | PDOC.PN ---
- Subjective Encounter Start Date: 08/27/18 Encounter Start Time: 12:00 Subjective: awake, no sob -: hearing healthcare practitioner at bedside - Objective Resuscitation Status - Order Detail: 08/27/18 01:05 Resuscitation Status Routine Resuscitation Status: DNAR: NO Resuscitation Discussed with: d/w son Mr.Hale Baron BAKER Reviewed: Yes Vital Signs & Weight: Vital Signs (12 hours) Temp Pulse Resp BP Pulse Ox 08/27/18 08:00 99.1 F 76 18 167/86 H 92 L 08/27/18 07:45 93 L 08/27/18 07:44 72 16 92 L 08/27/18 03:38 98.3 F 69 16 158/70 H 93 L 08/27/18 02:20 98 08/27/18 01:05 98 Weight Weight 134 lb Result Diagrams: 08/27/18 04:43 08/27/18 04:43 Phys Exam - Physical Examination HEENT: PERRLA, moist MMs Neck: no JVD, supple Respiratory: no wheezing, no rales rhonchi+ Cardiovascular: RRR, no significant murmur Gastrointestinal: soft, non-tender, positive bowel sounds Musculoskeletal: no edema, pulses present Neurological: non-focal, moves all 4 limbs Dx/Plan (1) Acute on chronic respiratory failure with hypoxemia Code(s): J96.21 - ACUTE AND CHRONIC RESPIRATORY FAILURE WITH HYPOXIA Status: Acute (2) Anxiety and depression Code(s): F41.9 - ANXIETY DISORDER, UNSPECIFIED; F32.9 - MAJOR DEPRESSIVE DISORDER, SINGLE EPISODE, UNSPECIFIED Status: Chronic Comment: stable (3) COPD (chronic obstructive pulmonary disease) Status: Chronic Qualifiers: COPD type: unspecified COPD Qualified Code(s): J44.9 - Chronic obstructive pulmonary disease, unspecified Comment: stable (4) Chronic anemia Code(s): D64.9 - ANEMIA, UNSPECIFIED Status: Chronic (5) Dementia Code(s): F03.90 - UNSPECIFIED DEMENTIA WITHOUT BEHAVIORAL DISTURBANCE Status: Chronic Qualifiers: Dementia type: Alzheimer's disease Alzheimer's disease onset: unspecified onset (6) Dyslipidemia Code(s): E78.5 - HYPERLIPIDEMIA, UNSPECIFIED Status: Chronic Comment: stable (7) Elevated diaphragm Code(s): J98.6 - DISORDERS OF DIAPHRAGM Status: Chronic Comment: chronic right hemidiaphram elevation (8) Hypertension Code(s): I10 - ESSENTIAL (PRIMARY) HYPERTENSION Status: Chronic Qualifiers: Hypertension type: essential hypertension Qualified Code(s): I10 - Essential (primary) hypertension Comment: controlled - Plan will add a bit of steroids -: currently appears comfortable on oxygen by nasal canula -: pulm consultation has been placed -: is DNAR per son -: continue asp, zocor, diovan, lamictal and remeron, will switch gabapentin * . -to am. will dc remeron Mobillize as tolerated. Review of Systems - Medications/Allergies Allergies/Adverse Reactions: Allergies Allergy/AdvReac Type Severity Reaction Status Date / Time Penicillins Allergy Verified 05/13/18 15:47 Medications: Current Medications Acetaminophen (Tylenol) 650 mg PO Q4H PRN PRN Reason: Headache/Fever/Mild Pain (1-3) Aspirin (Ecotrin) 81 mg PO DAILY [facility] Last Admin: 08/27/18 12:04 Dose: 81 mg Benzonatate (Tessalon) 100 mg PO TIDPRN PRN PRN Reason: Cough Last Admin: 08/27/18 12:04 Dose: 100 mg Docusate Sodium (Colace) 100 mg PO BID PRN PRN Reason: Constipation Enoxaparin Sodium (Lovenox) 40 mg SC 0900 [facility] Last Admin: 08/27/18 12:04 Dose: 40 mg Gabapentin (Neurontin) 300 mg PO HS [facility] Sodium Chloride (Normal Saline 0.9%) 1,000 mls @ 75 mls/hr IV .[id number] [facility] Last Admin: 08/27/18 03:40 Dose: 1,000 mls Lamotrigine (Lamictal) 150 mg PO HS [facility] Mirtazapine (Remeron) 7.5 mg PO HS [facility] Mometasone Furoate/Formoterol Fumar (Dulera 200 Mcg/5 Mcg Inhaler) 2 puff INH BID-RT [facility] Last Admin: 08/27/18 07:55 Dose: 2 puff Pantoprazole Sodium (Protonix) 40 mg PO DAILY [facility] Last Admin: 08/27/18 12:04 Dose: 40 mg Tobramycin/Lotepred Etab [Zylet Ophth Soln] 1 Drop 0 each EA EYE Q4HR [facility] Desvenlafaxine Succinate [Pristiq] 100 Mg 1 each PO DAILY [facility] Prednisolone Acetate (Pred Mild 0.12% Opth Susp) 1 drop EA EYE DAILY [facility] Last Admin: 08/27/18 12:04 Dose: 1 drop Simvastatin (Zocor) 40 mg PO HS [facility] Valsartan (Diovan) 320 mg PO DAILY [facility] Last Admin: 08/27/18 12:04 Dose: 320 mg
[2018-08-27] MEDS ORDERED: predniSONE 20 MG TAB PO SCH (13:30)
[2018-08-27] MEDS: lamoTRIgine 100 MG TAB PO SCH (20:31)
[2018-08-27] MEDS: Mirtazapine 15 MG TAB PO SCH (20:31)
[2018-08-27] MEDS: Simvastatin 40 MG TAB PO SCH (20:31)
[2018-08-27] MEDS: Gabapentin 300 MG CAP PO SCH (20:33)
[2018-08-28] MEDS: Benzonatate 100 MG CAP PO PRN ×3 (03:25→21:10)
[2018-08-28] MEDS: Sodium Chloride 0.9% 1,000 ML IV SCH (05:32)
[2018-08-28] MEDS: Mometasone/Formoterol 120 PUFF INHALER INH SCH ×2 (07:42→19:07)
--- NOTE | 2018-08-28 09:59 | PDOC.PN ---
- Subjective Encounter Start Date: 08/28/18 Encounter Start Time: 09:00 Subjective: awake, not in distress - Objective Resuscitation Status - Order Detail: 08/27/18 01:05 Resuscitation Status Routine Resuscitation Status: DNAR: NO Resuscitation Discussed with: d/w son Mr.Hale Baron BAKER Reviewed: Yes Vital Signs & Weight: Vital Signs (12 hours) Temp Pulse Resp BP BP Pulse Ox 08/28/18 08:00 97.5 F L 56 L 16 153/70 H 96 08/28/18 07:42 57 L 16 98 08/28/18 03:59 97.4 F L 81 20 159/99 H 95 08/28/18 00:00 98.0 F 65 16 182/77 H 93 L Weight Weight 134 lb I&O: 08/27/18 08/28/18 08/29/18 06:59 06:59 06:59 Intake Total 2465 Balance 2465 Result Diagrams: 08/27/18 04:43 08/27/18 04:43 Phys Exam - Physical Examination HEENT: PERRLA, moist MMs Neck: no JVD, supple Respiratory: no wheezing, no rales Cardiovascular: RRR, no significant murmur Gastrointestinal: soft, non-tender, positive bowel sounds Musculoskeletal: no edema, pulses present Neurological: non-focal, moves all 4 limbs Dx/Plan (1) Acute on chronic respiratory failure with hypoxemia Code(s): J96.21 - ACUTE AND CHRONIC RESPIRATORY FAILURE WITH HYPOXIA Status: Acute (2) Anxiety and depression Code(s): F41.9 - ANXIETY DISORDER, UNSPECIFIED; F32.9 - MAJOR DEPRESSIVE DISORDER, SINGLE EPISODE, UNSPECIFIED Status: Chronic Comment: stable (3) COPD (chronic obstructive pulmonary disease) Status: Chronic Qualifiers: COPD type: unspecified COPD Qualified Code(s): J44.9 - Chronic obstructive pulmonary disease, unspecified Comment: stable (4) Chronic anemia Code(s): D64.9 - ANEMIA, UNSPECIFIED Status: Chronic (5) Dementia Code(s): F03.90 - UNSPECIFIED DEMENTIA WITHOUT BEHAVIORAL DISTURBANCE Status: Chronic Qualifiers: Dementia type: Alzheimer's disease Alzheimer's disease onset: unspecified onset (6) Dyslipidemia Code(s): E78.5 - HYPERLIPIDEMIA, UNSPECIFIED Status: Chronic Comment: stable (7) Elevated diaphragm Code(s): J98.6 - DISORDERS OF DIAPHRAGM Status: Chronic Comment: chronic right hemidiaphram elevation (8) Hypertension Code(s): I10 - ESSENTIAL (PRIMARY) HYPERTENSION Status: Chronic Qualifiers: Hypertension type: essential hypertension Qualified Code(s): I10 - Essential (primary) hypertension Comment: controlled - Plan hemostable -: on prednisone -: repeat cxr -: nebs -: may dc home if ok with pulm advice * . Review of Systems - Medications/Allergies Allergies/Adverse Reactions: Allergies Allergy/AdvReac Type Severity Reaction Status Date / Time Penicillins Allergy Verified 05/13/18 15:47 Medications: Current Medications Acetaminophen (Tylenol) 650 mg PO Q4H PRN PRN Reason: Headache/Fever/Mild Pain (1-3) Aspirin (Ecotrin) 81 mg PO DAILY [facility] Last Admin: 08/27/18 12:04 Dose: 81 mg Benzonatate (Tessalon) 100 mg PO TIDPRN PRN PRN Reason: Cough Last Admin: 08/28/18 03:25 Dose: 100 mg Docusate Sodium (Colace) 100 mg PO BID PRN PRN Reason: Constipation Enoxaparin Sodium (Lovenox) 40 mg SC 0900 [facility] Last Admin: 08/27/18 12:04 Dose: 40 mg Gabapentin (Neurontin) 300 mg PO [facility] Last Admin: 08/27/18 20:33 Dose: 300 mg Sodium Chloride (Normal Saline 0.9%) 1,000 mls @ 75 mls/hr IV .[id number] [facility] Last Admin: 08/28/18 05:32 Dose: 1,000 mls Lamotrigine (Lamictal) 150 mg PO [facility] Last Admin: 08/27/18 20:31 Dose: 150 mg Mirtazapine (Remeron) 7.5 mg PO [facility] Last Admin: 08/27/18 20:31 Dose: 7.5 mg Mometasone Furoate/Formoterol Fumar (Dulera 200 Mcg/5 Mcg Inhaler) 2 puff INH BID-RT [facility] Last Admin: 08/28/18 07:42 Dose: 2 puff Pantoprazole Sodium (Protonix) 40 mg PO DAILY [facility] Last Admin: 08/27/18 12:04 Dose: 40 mg Tobramycin/Lotepred Etab [Zylet Ophth Soln] 1 Drop 0 each EA EYE Q4HR [facility] Desvenlafaxine Succinate [Pristiq] 100 Mg 1 each PO DAILY [facility] Prednisolone Acetate (Pred Mild 0.12% Opth Susp) 1 drop EA EYE DAILY [facility] Last Admin: 08/27/18 12:04 Dose: 1 drop Prednisone (Prednisone) 20 mg PO QAM-WM [facility] Simvastatin (Zocor) 40 mg PO HS [facility] Last Admin: 08/27/18 20:31 Dose: 40 mg Valsartan (Diovan) 320 mg PO DAILY [facility] Last Admin: 08/27/18 12:04 Dose: 320 mg
[2018-08-28] MEDS: prednisoLONE Acet 0.12% Ophth Soln 5 ml Bottle EA EYE SCH (10:10)
[2018-08-28] MEDS: predniSONE 20 MG TAB PO SCH (10:10)
[2018-08-28] MEDS: Enoxaparin Sodium 40 MG/0.4 ML SYRINGE SC SCH (10:10)
[2018-08-28] MEDS: Aspirin 81 mg Enteric Coated Tablet PO SCH (10:11)
--- NOTE | 2018-08-28 11:27 | CON ---
DATE OF CONSULTATION: HISTORY OF PRESENT ILLNESS: Suzy Aleman is an 83-year-old obese female, who is well known to us, presented to the hospital with several day history of persistent cough, unresponsive to her usual home medication. She denies any fever or chills. She is clearly wheezing. several days. She was found to be hypoxic per the home health nurse, sats were apparently 83, temperature 101.2. She has recieved several neb treatments in the ER. PAST MEDICAL HISTORY: Unknown interstitial lung disease, though I doubt she has pulmonary fibrosis, elevated right hemidiaphragm long-standing duration of unknown etiology, hypertension, asthma, anxiety, depression, movement disorder. PAST SURGERIES: Ankle surgery, hip surgery. Recently hospitalized about a year ago for dehydration and bradycardia. ALLERGIES: PENICILLIN. SOCIAL HISTORY: No alcohol or tobacco abuse. She has a 24 hour care at home. HOME MEDICATIONS: Includes Norvasc 10, eyedrops, Remeron 7.5 at bedtime, Protonix 40, nebulizer p.r.n., Pristiq 100, aspirin, gabapentin, Symbicort, Zetonna, valsartan, nitrofurantoin 100. ALLERGIES: PENICILLIN. SOCIAL HISTORY: Tobacco, none. Alcohol, none. REVIEW OF SYSTEMS: Otherwise 10 point negative. PHYSICAL EXAMINATION: VITAL SIGNS: Sats are 96% on 2 L, respiratory rate 16, temperature 97, pulse 56, blood pressure 153/70. CHEST: Bilateral wheezing, left greater than right. CARDIAC: Normal S1, S2. No gallops. ABDOMEN: No masses. LABORATORY STUDIES: Chest x-ray shows elevated right hemidiaphragm, chronic. No acute infiltrates were seen. White count 5,000, H and H 10 and 34, platelet count is normal. Chemistry shows creatinine 1.25 which is at her baseline, albumin is normal. IMPRESSION: 1. Bronchial asthma exacerbation, bronchitis. 2. Elevated hemidiaphragm with azotemia. 3. Bipolar disorder and chronic pain, severe deconditioning. PLAN: She is a DNR. I have added nebs present treatment. Hopefully, if she gets stabilized we can discharge to home in the next 24 to 48 hours. Pulmonary will follow, 70 minutes consultation note, 50% direct patient care. Job ID: [id number]
--- NOTE | 2018-08-28 11:50 | RAD ---
CHEST 1 VIEW: Date: 08/28/18 INDICATION: Concern for pneumonia. COMPARISON: Chest radiograph dated 08/26/18. FINDINGS: There is stable elevation of the right hemidiaphragm with gas-filled colon underlying the right hemid iaphragm. No confluent air space opacity is evident to suggest pneumonia. Area of subsegmental volume loss is suspected within the left lower lobe, within the retrocardiac region. There is an additional area of subsegmental volume loss within the left mid lung, which is new from the comparison. No pleu ral effusion or pneumothorax is identified. Mild cardiomegaly and vascular calcification of the aorti c arch is stable. Spondylosis of thoracic spine is similar. IMPRESSION: 1. No radiographic evidence of pneumonia on the current study. Areas of subsegmental atelectasis inv olving the left mid lung and retrocardiac left lower lobe suspected. 2 view chest radiograph may be h elpful for further evaluation. 2. Stable elevation of the right hemidiaphragm with right basilar atelectasis. POS: [facility]
[2018-08-28] MEDS: Valsartan 80 MG TAB PO SCH (11:58)
[2018-08-28] MEDS: Budesonide 0.5 MG/2 ML NEB INH SCH (19:07)
[2018-08-28] MEDS ORDERED: hydrALAZINE 20 MG/ML VIAL SLOW IVP PRN (20:00)
[2018-08-28] MEDS: Gabapentin 300 MG CAP PO SCH (20:24)
[2018-08-28] MEDS: Mirtazapine 15 MG TAB PO SCH (20:24)
[2018-08-28] MEDS: Doxycycline 100 MG CAP PO SCH (20:24)
[2018-08-28] MEDS: lamoTRIgine 100 MG TAB PO SCH (20:25)
[2018-08-28] MEDS: Simvastatin 40 MG TAB PO SCH (20:25)
[2018-08-28] MEDS ORDERED: Melatonin 3 MG TAB PO PRN (23:47)
[2018-08-29] MEDS: Sodium Chloride 0.9% 1,000 ML IV SCH (00:57)
[2018-08-29] MEDS: Budesonide 0.5 MG/2 ML NEB INH SCH (08:38)
[2018-08-29] MEDS: Mometasone/Formoterol 120 PUFF INHALER INH SCH (08:38)
[2018-08-29] MEDS: prednisoLONE Acet 0.12% Ophth Soln 5 ml Bottle EA EYE SCH (08:57)
[2018-08-29] MEDS: Aspirin 81 mg Enteric Coated Tablet PO SCH (08:58)
[2018-08-29] MEDS: Doxycycline 100 MG CAP PO SCH (08:58)
[2018-08-29] MEDS: predniSONE 20 MG TAB PO SCH (08:58)
[2018-08-29] MEDS: Valsartan 80 MG TAB PO SCH (08:58)
[2018-08-29] MEDS: Enoxaparin Sodium 40 MG/0.4 ML SYRINGE SC SCH (08:58)
[2018-08-29] MEDS ORDERED: Venlafaxine HCl XR 150 MG CAP PO SCH (09:00)
[2018-08-29 09:12] VITALS: TEMP 97.6
[2018-08-29] MEDS: Benzonatate 100 MG CAP PO PRN (09:49)
--- NOTE | 2018-08-29 09:56 | PDOC.PN ---
- Subjective Encounter Start Date: 08/29/18 Encounter Start Time: 09:00 Subjective: feels better, no sob -: not in distress - Objective Resuscitation Status - Order Detail: 08/27/18 01:05 Resuscitation Status Routine Resuscitation Status: DNAR: NO Resuscitation Discussed with: d/w son Mr.Hale Baron BAKER Reviewed: Yes Vital Signs & Weight: Vital Signs (12 hours) Temp Pulse Resp BP BP Pulse Ox 08/29/18 08:39 98 08/29/18 08:38 62 16 98 08/29/18 08:35 62 20 98 08/29/18 08:00 97.6 F 57 L 20 134/62 96 08/29/18 04:00 97.7 F 62 16 116/56 L 97 08/29/18 01:00 71 16 94 L 08/29/18 00:00 98.3 F 85 16 166/80 H 95 08/28/18 22:00 1746/77 H Weight Weight 134 lb I&O: 08/28/18 08/29/18 08/30/18 06:59 06:59 06:59 Intake Total 2465 1535 Balance 2465 1535 Result Diagrams: 08/27/18 04:43 08/27/18 04:43 Phys Exam - Physical Examination HEENT: PERRLA, moist MMs Neck: no JVD, supple Respiratory: no wheezing, no rales Cardiovascular: RRR, no significant murmur Gastrointestinal: soft, non-tender, positive bowel sounds Musculoskeletal: no edema, pulses present Neurological: non-focal, moves all 4 limbs Dx/Plan (1) Acute on chronic respiratory failure with hypoxemia Code(s): J96.21 - ACUTE AND CHRONIC RESPIRATORY FAILURE WITH HYPOXIA Status: Resolved (2) Anxiety and depression Code(s): F41.9 - ANXIETY DISORDER, UNSPECIFIED; F32.9 - MAJOR DEPRESSIVE DISORDER, SINGLE EPISODE, UNSPECIFIED Status: Chronic Comment: stable (3) COPD (chronic obstructive pulmonary disease) Status: Chronic Qualifiers: COPD type: unspecified COPD Qualified Code(s): J44.9 - Chronic obstructive pulmonary disease, unspecified Comment: stable (4) Chronic anemia Code(s): D64.9 - ANEMIA, UNSPECIFIED Status: Chronic (5) Dementia Code(s): F03.90 - UNSPECIFIED DEMENTIA WITHOUT BEHAVIORAL DISTURBANCE Status: Chronic Qualifiers: Dementia type: Alzheimer's disease Alzheimer's disease onset: unspecified onset (6) Dyslipidemia Code(s): E78.5 - HYPERLIPIDEMIA, UNSPECIFIED Status: Chronic Comment: stable (7) Elevated diaphragm Code(s): J98.6 - DISORDERS OF DIAPHRAGM Status: Chronic Comment: chronic right hemidiaphram elevation (8) Hypertension Code(s): I10 - ESSENTIAL (PRIMARY) HYPERTENSION Status: Chronic Qualifiers: Hypertension type: essential hypertension Qualified Code(s): I10 - Essential (primary) hypertension Comment: controlled - Plan hemostable -: may dc home if ok with -: continue doxy, prednisone, nebs -: encourage po intake -: is on asp, diovan, zocor, lamictal, gabapentin * . Review of Systems - Medications/Allergies Allergies/Adverse Reactions: Allergies Allergy/AdvReac Type Severity Reaction Status Date / Time Penicillins Allergy Verified 05/13/18 15:47 Medications: Current Medications Acetaminophen (Tylenol) 650 mg PO Q4H PRN PRN Reason: Headache/Fever/Mild Pain (1-3) Last Admin: 08/29/18 00:59 Dose: 650 mg Albuterol/Ipratropium (Duoneb) 3 ml NEB [id number] [facility] Last Admin: 08/29/18 08:35 Dose: 3 ml Aspirin (Ecotrin) 81 mg PO DAILY [facility] Last Admin: 08/29/18 08:58 Dose: 81 mg Benzonatate (Tessalon) 100 mg PO TIDPRN PRN PRN Reason: Cough Last Admin: 08/29/18 09:49 Dose: 100 mg Budesonide (Pulmicort Neb Solution) 0.5 mg INH BID-RT [facility] Last Admin: 08/29/18 08:38 Dose: 0.5 mg Docusate Sodium (Colace) 100 mg PO BID PRN PRN Reason: Constipation Doxycycline Hyclate (Vibramycin) 100 mg PO BID [facility] Stop: 09/02/18 21:01 Last Admin: 08/29/18 08:58 Dose: 100 mg Enoxaparin Sodium (Lovenox) 40 mg SC 0900 [facility] Last Admin: 08/29/18 08:58 Dose: 40 mg Gabapentin (Neurontin) 300 mg PO HS [facility] Last Admin: 08/28/18 20:24 Dose: 300 mg Hydralazine HCl (Apresoline) 10 mg SLOW IVP Q4H PRN PRN Reason: SBP > 180 and HR < 70 Last Admin: 08/28/18 21:10 Dose: 10 mg Sodium Chloride (Normal Saline 0.9%) 1,000 mls @ 75 mls/hr IV .[id number] [facility] Last Admin: 08/29/18 00:57 Dose: 1,000 mls Lamotrigine (Lamictal) 150 mg PO HS [facility] Last Admin: 08/28/18 20:25 Dose: 150 mg Melatonin (Melatonin) 3 mg PO HS PRN PRN Reason: Insomnia Last Admin: 08/29/18 00:42 Dose: 3 mg Mirtazapine (Remeron) 7.5 mg PO HS [facility] Last Admin: 08/28/18 20:24 Dose: 7.5 mg Mometasone Furoate/Formoterol Fumar (Dulera 200 Mcg/5 Mcg Inhaler) 2 puff INH BID-RT [facility] Last Admin: 08/29/18 08:38 Dose: 2 puff Pantoprazole Sodium (Protonix) 40 mg PO DAILY [facility] Last Admin: 08/29/18 08:59 Dose: 40 mg Tobramycin/Lotepred Etab [Zylet Ophth Soln] 1 Drop 0 each EA EYE Q4HR [facility] Prednisolone Acetate (Pred Mild 0.12% Opth Susp) 1 drop EA EYE DAILY [facility] Last Admin: 08/29/18 08:57 Dose: 1 drop Prednisone (Prednisone) 20 mg PO QAM-WM [facility] Last Admin: 08/29/18 08:58 Dose: 20 mg Simvastatin (Zocor) 40 mg PO HS [facility] Last Admin: 08/28/18 20:25 Dose: 40 mg Sodium Chloride (Flush - Normal Saline) 10 ml IVF Q12HR [facility] Last Admin: 08/29/18 08:59 Dose: Not Given Sodium Chloride (Flush - Normal Saline) 10 ml IVF PRN PRN PRN Reason: Saline Flush Valsartan (Diovan) 320 mg PO DAILY [facility] Last Admin: 08/29/18 08:58 Dose: 320 mg Venlafaxine HCl (Effexor Xr) 150 mg PO DAILY [facility] Last Admin: 08/29/18 08:59 Dose: 150 mg
--- NOTE | 2018-08-29 10:30 | PRG ---
DATE OF SERVICE: 08/29/2018 SUBJECTIVE: This morning, she is better, less cough, less shortness of breath. OBJECTIVE: VITAL SIGNS: Blood pressure is 130/62, temperature 97, sats 98% on 2 L, respiratory rate 16, and pulse 62. CHEST: No wheezing. CARDIAC: Normal S1 and S2. No gallops. ABDOMEN: No masses. IMPRESSION: Bronchitis, asthmatic, improved. PLAN: She will be discharged home on antibiotics and tapering dose of prednisone. Job ID: [id number]
[2018-08-29] MEDS ORDERED: TOBRAMYCIN EA EYE SCH (13:00)
[2018-08-29] MEDS ORDERED: LOTEPRED ETAB EA EYE SCH (13:00)
[2018-08-29 13:44] VITALS: BP 136/65
--- NOTE | 2018-08-29 14:30 | PQF ---
DATE: 08-29-18 ATTN: DR. GAY ACEVEDO Please exercise your independent, professional judgment in responding to the clarification form. Clinical indicators are provided on the bottom of this form for your review Please check appropriate box(s): [ ] UTI [ ] Contaminated urine specimen without UTI [ ] Other diagnosis [ ] Unable to determine In addition, please specify: Present on Admission (POA): [ ] Yes [ ] No [ ] Unable to determine For continuity of documentation, please document condition throughout progress notes and discharge summary. Thank You. CLINICAL INDICATORS - SIGNS / SYMPTOMS / LABS URINE 08-26-18: URINE PROTEIN: 30 H URINE BLOOD: SMALL H UR LEUKOCYTE ESTERASE: SMALL H URINE RBC: 7-10 H URINE WBC: 7-10 H HYALINE CASTS: 4-6 HYALINE CAST H FEVER ER: 101.1, 100.2, 99.6 RISK FACTORS: CONSULT NOTE DR. NGUYEN 08-28-18: SEVERE DECONDITIONING TREATMENT: ER: LEVAQUIN, IVF NS (This form is maintained as a part of the permanent medical record) 2014 [employer] All Rights Reserved STEFANIA [email or web address] Office: [phone] [facility]
--- NOTE | 2018-08-29 14:56 | PQF ---
DATE: 08-29-18 ATTN: DR. GAY ACEVEDO Please exercise your independent, professional judgment in responding to the clarification form. Clinical indicators are provided on the bottom of this form for your review Please check appropriate box(s) to clarify if the following diagnosis has been ruled in or ruled out: SEPSIS [ x ] Ruled in diagnosis [ ] Continue to treat [ ] Resolved [ ] Ruled out diagnosis [ ] Other diagnosis [ ] Unable to determine In addition, please specify: Present on Admission (POA): [x ] Yes [ ] No [ ] Unable to determine For continuity of documentation, please document condition throughout progress notes and discharge summary. Thank You. CLINICAL INDICATORS - SIGNS / SYMPTOMS / LABS ER DX: SEPSIS, FEVER, HYPOXIA, PNEUMONIA H&P: FEBRILE AT 101.2 ON ARRIVAL O2 SAT AT 83%, COUGH H&P: ACUTE ON CHRONIC HYPOXIC RESPIRATORY FAILURE, FEVER, UNCLEAR ETIOLOGY. FEVER: ER: 101.1, 100.2, 99.6 RR: 26 RISK FACTORS: ER DX: SEPSIS, FEVER, HYPOXIA, PNEUMONIA H&P: FEBRILE AT 101.2 ON ARRIVAL O2 SAT AT 83%, COUGH H&P: ACUTE ON CHRONIC HYPOXIC RESPIRATORY FAILURE, FEVER, UNCLEAR ETIOLOGY. CONSULT NOTE DR. NGUYEN 08-28-18: SEVERE DECONDITIONING TREATMENTS: MAR: IVF NS, DOXYCYCLINE ER: LEVAQUIN IV, NS IVF (This form is maintained as a part of the permanent medical record) 2014 [employer] All Rights Reserved STEFANIA [email or web address] Office: [phone] [facility]
--- NOTE | 2018-08-30 15:39 | DIS ---
DATE OF ADMISSION: 08/26/2018 DATE OF DISCHARGE: 08/29/2018 DISCHARGE DISPOSITION: Home. PRIMARY DISCHARGE DIAGNOSES: Acute on chronic respiratory failure with hypoxemia, chronic obstructive pulmonary disease exacerbation, anxiety, depression, chronic anemia, dementia, chronic elevated right hemidiaphragm, dyslipidemia, hypertension. PROCEDURES DONE DURING HOSPITALIZATION: The patient has had chest x-ray done x2, which did not reveal any acute cardiopulmonary abnormality. LABORATORY DATA: Hemoglobin and hematocrit of 11 and 34, platelet count 150. Discharge BUN and creatinine are 28 and 1.25. Troponin x1 is negative. BNP 69. Blood cultures x2, no growth. Influenza A and B antigens were negative. Urine culture was contaminated. INPATIENT CONSULT: Dr. Grover for Pulmonology. DISCHARGE MEDICATIONS: 1. Aspirin 81 mg p.o. daily. 2. Symbicort inhaler 160/4.5 mcg two puffs twice daily. 3. Vitamin D3, 2000 units p.o. daily. 4. Pristiq 100 mg p.o. daily. 5. Colace 100 mg p.o. twice daily. 6. Gabapentin 300 mg p.o. at bedtime. 7. Lamotrigine 150 mg p.o. at bedtime. 8. Remeron 7.5 mg p.o. at bedtime. 9. Macrobid 50 mg p.o. daily, that is urinary tract infection prophylaxis, which the patient was on prior to hospitalization. 10. Zocor 40 mg p.o. at bedtime. 11. Trihexyphenidyl 2 mg p.o. twice daily. 12. Valsartan with hydrochlorothiazide 320/25 mg p.o. daily. 13. Norvasc 10 mg daily. 14. Doxycycline 100 mg p.o. twice daily for 5 days. 15. DuoNebs q.6 hourly. 16. Protonix 40 mg p.o. daily. 17. Prednisone 10 mg p.o. twice daily for 3 days, then daily for 3 days, then half a tablet for 2 days, and to discontinue after that. ALLERGIES: ALLERGIC TO PENICILLIN. DISCHARGE PLAN: The patient to follow up with primary care physician in [address] Grover in 4 weeks. BRIEF COURSE DURING HOSPITALIZATION: The patient initially got admitted on the 8th with complaints of shortness of breath. She was 83% on room air on arrival. The patient was also having some wheezes on arrival. She was essentially admitted for COPD exacerbation with acute respiratory failure with hypoxia. Her oxygen saturation has come up promptly with 1 to 2 L of nasal supplementation of oxygen. She was placed on steroids, DuoNebs, and empiric doxycycline. She has responded well to above measures. She has also started to eat well. The patient is weaned off nasal cannula oxygen. She is hemodynamically stable and has been cleared by Dr. Grover for discharge today. Please see a [id number] documentation for the day of discharge on [employer]. Job ID: [id number]
--- NOTE | 2018-08-31 21:26 | EKG ---
Test Reason : Blood Pressure : / mmHG Vent. Rate : 083 BPM Atrial Rate : 083 BPM P-R Int : 174 ms QRS Dur : 092 ms QT Int : 374 ms P-R-T Axes : 061 073 037 degrees QTc Int : 439 ms Normal sinus rhythm Normal ECG Confirmed by LOGAN CARVER ([id number]), photographic editor THONG ALICEA ([id number]) on 08/31/2018 9:25:40 PM Referred By: Confirmed By:LOGAN CARVER
== END 2018-08-29 17:25 | disposition home or self-care (01) | DRG 871 ==
LOC: ERS 17:47 → ONC 19:11
PROVIDERS: ADMIT Emergency Medicine; ATTEND Emergency Medicine
DX: A41.9 Sepsis, unspecified organism (principal); J96.21 Acute and chronic respiratory failure with hypoxia; J45.901 Unspecified asthma with (acute) exacerbation; J44.9 Chronic obstructive pulmonary disease, unspecified; E78.5 Hyperlipidemia, unspecified; Z66 Do not resuscitate; I12.9 Hypertensive chronic kidney disease with stage 1 through stage 4 chronic kidney disease, or unspecified chronic kidney disease; N18.3 Chronic kidney disease, stage 3 (moderate); F31.9 Bipolar disorder, unspecified; G89.29 Other chronic pain; D64.9 Anemia, unspecified; F03.90 Unspecified dementia, unspecified severity, without behavioral disturbance, psychotic disturbance, mood disturbance, and anxiety; J98.6 Disorders of diaphragm; F41.8 Other specified anxiety disorders; Z96.643 Presence of artificial hip joint, bilateral; Z98.890 Other specified postprocedural states; Z88.0 Allergy status to penicillin; Z79.82 Long term (current) use of aspirin; Z79.899 Other long term (current) drug therapy
CPT/HCPCS: 36415; 71045; 80048; 80053; 81003; 81015; 83605; 83880; 84484; 85025; 87040; 87086; 87804; 93005; 94640; 96360; 96365; 96366; J0360; J1650; J1956; J7506; J7620; J7626

== ENCOUNTER 2018-09-23 15:13 | Emergency (ER) | payer MEDICARE, OTHER ==
[2018-09-23 16:11] LABS: Anisocytosis SLIGHT = 6-15 cells (100X) (0-5/hpf); Band 6 % (5-11); Eosinophils 4 % (0-10); Hemoglobin 12.1 g/dL (12.0-16.0); Lymphocytes 7 % (21-51); MDiff Complete? YES; Mean Corpuscular Hemoglobin 29.2 pg (27.0-31.0); Mean Corpuscular Volume 91.2 fL (78.0-98.0); Mean Platelet Volume 6.6 fL (7.4-10.4); Monocytes 7 % (0-10); Neutrophil 70 % (42-75); Platelet Count 319 thou/uL (130-400); Platelet Morphology Comment Appears Adequate; Reactive Lymphocytes 6 % (0-10); Red Blood Cell (RBC) Count 4.15 mill/uL (4.20-5.40); Target Cells SLIGHT = 2-5 cells (100X) (0-1/hpf); White Blood Cell (WBC) Count 6.9 thou/uL (4.8-10.8)
[2018-09-23 16:15] LABS: ALT (SGPT) 15 U/L (8-55); AST (SGOT) 24 U/L (5-34); Albumin 3.1 g/dL (3.4-4.8); Alkaline Phosphatase 99 U/L (40-150); Anion Gap 18 mmol/L (10-20); BUN (Urea Nitrogen) 29 mg/dL (9.8-20.1); Bilirubin, Total 0.4 mg/dL (0.2-1.2); Calc. Creatinine Clearance 0 mL/min (70-130); Calcium 9.7 mg/dL (7.8-10.44); Carbon Dioxide 26 mmol/L (23-31); Chloride 102 mmol/L (98-107); Estimated GFR-MDRD 29; Globulin 3.4 g/dL (2.4-3.5); Glucose 86 mg/dL (83-110); Potassium 4.1 mmol/L (3.5-5.1); Protein, Total 6.5 g/dL (6.0-8.3); Sodium 142 mmol/L (136-145)
== END 2018-09-23 17:20 | disposition home or self-care (01) ==
LOC: SCSER 15:13
DX: E86.0 Dehydration (principal); E78.5 Hyperlipidemia, unspecified; I10 Essential (primary) hypertension; J45.909 Unspecified asthma, uncomplicated; F41.9 Anxiety disorder, unspecified; F32.9 Major depressive disorder, single episode, unspecified
CPT/HCPCS: 80053; 85025; 99284